=== PATIENT | male | born 1960 | race American Indian/Alaskan Native ===

== ENCOUNTER 2017-07-06 23:46 | Emergency (ER) | payer MEDICAID, OTHER ==
[2017-07-06] MEDS ORDERED: Diphtheria,Pertussis(Acell),Tetanus Vaccine 0.5 ML SDV IM ONE (23:50)
[2017-07-06] MEDS ORDERED: Ondansetron 4 MG/2 ML SDV IV ONE (23:50)
[2017-07-06] MEDS ORDERED: Sodium Chloride 0.9% 10 ML Syringe FLUSH PRN (23:50)
[2017-07-06] MEDS ORDERED: Morphine 4 MG/ML Syringe IVPUSH ONE (23:50)
[2017-07-06] MEDS ORDERED: diphenhydrAMINE 50 MG/ML SDV IVPUSH ONE (23:50)
[2017-07-06] MEDS ORDERED: Piperacillin/Tazobactam 3.375 GM in Sodium Chloride 0.9% 100 ML IV ONE (23:50)
[2017-07-06] MEDS ORDERED: Sodium Chloride 0.9% 1,000 ML IV ONE (23:53)
[2017-07-06] MEDS ORDERED: Iopamidol 612 MG/ML 100 ML Bottle IVPUSH ONE (23:53)
[2017-07-07] MEDS ORDERED: metroNIDAZOLE/Normal Saline 500 MG in Premix Bag 100 BAG IV ONE (00:04)
[2017-07-07 00:23] LABS: CHLORIDE,CL 95 mmol/L (101-111); SODIUM,NA 131 mmol/L (135-145)
[2017-07-07] MEDS ORDERED: Acetaminophen 500 MG Tab PO ONE (00:30)
--- NOTE | 2017-07-07 19:31 | EDM.PDOC ---
ED HPI GENERAL MEDICAL PROBLEM - General Chief Complaint: Bite:Animal, Insect Stated Complaint: AMBULANCE Time Seen by Provider: 07/06/17 23:50 Source of Information: Reports: Patient, EMS History Limitations: Reports: No Limitations - History of Present Illness INITIAL COMMENTS - FREE TEXT/NARRATIVE: patient comes emergency department today with complaints of a painful right forearm. The patient 5 days ago was bitten on the right wrist by some "reservation dogs". he is unsure of the rabies vaccination on him. Since that time he has had increased pain swelling and erythema to his right extremity. He is unsure when his last tetanus shot was. He does complain of fever and chills. He denies any weakness dizziness lightheadedness. He relates at home that he was pulling off some of the black scarring on the wound on his right wrist and popping blisters at home today that were full of pus he reports. He denies chest pain shortness breath or difficulty breathing.he denies any past medical history. He does admit to regular methamphetamine injection. Right Arm Pain Score (Numeric/FACES): 5 - Related Data Allergies Allergy/AdvReac Type Severity Reaction Status Date / Time No Known Allergies Allergy Verified 07/06/17 23:49 Home Meds: Home Meds . [No Known Home Meds] 07/06/17 [History] Past Medical History - Past Health History Medical/Surgical History: Denies Medical/Surgical History - Past Surgical History GI Surgical History: Reports: Appendectomy Social & Family History - Tobacco Use Smoking Status *Q: Current Every Day Smoker Years of Tobacco use: 17 Packs/Tins Daily: 0.8 - Caffeine Use Caffeine Use: Reports: Coffee, Soda - Recreational Drug Use Recreational Drug Use: Yes Drug Use in Last 12 Months: Yes Recreational Drug Type: Reports: Methamphetamine ED ROS GENERAL - Review of Systems Review Of Systems: ROS reveals no pertinent complaints other than HPI. ED EXAM, ANIMAL BITE - Physical Exam Exam: See Below Text/Narrative:: it is quite obvious that his right arm from about the mid humerus all the way down to the end of his fingers is twice as large as his left arm erythematous swollen and extremely foul-smelling. Exam Limited By: No Limitations General Appearance: Alert, WD/WN, No Apparent Distress Eye Exam: Bilateral Eye: EOMI Ears: Normal External Exam, Normal Canal Nose: Normal Inspection, Normal Mucosa Throat/Mouth: Normal Inspection, Normal Lips, Normal Oropharynx Head: Atraumatic, Normocephalic Neck: Normal Inspection Respiratory/Chest: No Respiratory Distress, Lungs Clear, Normal Breath Sounds, No Accessory Muscle Use Cardiovascular: Normal Peripheral Pulses, Regular Rate, Rhythm Peripheral Pulses: 1+: Brachial (R), Radial (R), 2+: Brachial (L), Radial (L) GI/Abdominal: Normal Bowel Sounds, Soft, Non-Tender, No Distention, No Abnormal Bruit (Male) Exam: Deferred Rectal (Males) Exam: Deferred Back Exam: Normal Inspection, Full Range of Motion Extremities: Other (examination of the right upper extremity shows a very impressive erythematous swollen arm that is twice as big as the left arm. On the radial aspect of his right wrist there is approximately baseball size diameter area of black necrotic tissue with white surrounding it circumferentially. There are multiple blisters some fluid-filled and some purulent filled blisters. It has an extremely foul smell to it. He is unable to flex and extend at the wrist. He has minimal movement of his fingers to the right hand. He does have capillary refill at approximately 3 seconds. The erythematous swelling induration and tenderness goes up about group home the mid humerus. I have concerns for either gas gangrene or necrotizing fasciitis.) Neurological: Alert, Oriented Psychiatric: Normal Affect, Normal Mood Skin Exam: Other (his skin is otherwise pale and diaphoretic.) Course - Vital Signs Last Recorded V/S: Last Vital Signs Temp 38.8 C H 07/07/17 00:36 Pulse 93 07/07/17 00:35 Resp 20 07/07/17 00:35 BP 121/66 07/07/17 00:35 Pulse Ox 99 07/07/17 00:35 - Orders/Labs/Meds Orders: Active Orders 24 hr Category Date Time Status Peripheral IV Care [RC] . DIRECTED Care 07/06/17 23:51 Active Vaccines to be Administered [RC] PER UNIT ROUTINE Care 07/06/17 23:51 Active CULTURE BLOOD [BC] Stat Lab 07/06/17 23:51 Received CULTURE WOUND [RM] Stat Lab 07/07/17 00:00 Received Blood Culture x2 Reflex Set [OM.PC] Stat Oth 07/06/17 23:50 Ordered Peripheral IV Insertion Adult [OM.PC] Stat Oth 07/06/17 23:49 Ordered Labs: Laboratory Tests 07/07/17 07/07/17 07/07/17 Range/Units 00:00 00:00 00:00 WBC 17.1 H (5.0-10.0) 10^3/uL RBC 4.31 L (4.6-6.2) 10^6/uL Hgb 13.4 L D (14.0-18.0) g/dL Hct 38.5 L (40.0-54.0) % MCV 89.3 D (80-100) fL MCH 31.1 (27.0-34.0) pg MCHC 34.8 (33.0-35.0) g/dL Plt Count 270 (150-450) 10^3/uL Neut % (Auto) 82.3 H (42.2-75.2) % Lymph % (Auto) 6.6 L (20.5-50.1) % Iron % (Auto) 11.1 H (2-8) % Eos % (Auto) 0.0 L (1.0-3.0) % Baso % (Auto) 0.0 (0.0-1.0) % Add Manual Diff Yes Neutrophils % (Manual) 59 (42-75) % Band Neutrophils % 23 % Lymphocytes % (Manual) 10 L (20-50) % Atypical Lymphs % 0 % Monocytes % (Manual) 8 (2-8) % Eosinophils % (Manual) 0 L (1-3) % Basophils % (Manual) 0 Sodium 131 L D (135-145) mmol/L Potassium 3.6 (3.6-5.0) mmol/L Chloride 95 L D (101-111) mmol/L Carbon Dioxide 25.0 (21.0-31.0) mmol/L Anion Gap 14.6 BUN 34 H (7-18) mg/dL Creatinine 1.0 (0.6-1.3) mg/dL Est Cr Clr Drug Dosing 87.19 mL/min Estimated GFR (MDRD) > 60 BUN/Creatinine Ratio 34.00 Glucose 90 (74-105) mg/dL Lactic Acid 1.9 (0.5-2.2) mmol/L Calcium 8.5 (8.4-10.2) mg/dl Total Bilirubin 0.9 (0.2-1.0) mg/dL AST 65 H (10-42) IU/L ALT 44 (10-60) IU/L Alkaline Phosphatase 45 (42-121) IU/L C-Reactive Protein (0.0-1.3) mg/dL Total Protein 8.4 H (6.7-8.2) g/dl Albumin 3.7 (3.2-5.5) g/dl Globulin 4.7 Albumin/Globulin Ratio 0.79 02//18 Range/Units 00:00 WBC (5.0-10.0) 10^3/uL RBC (4.6-6.2) 10^6/uL Hgb (14.0-18.0) g/dL Hct (40.0-54.0) % MCV (80-100) fL MCH (27.0-34.0) pg MCHC (33.0-35.0) g/dL Plt Count (150-450) 10^3/uL Neut % (Auto) (42.2-75.2) % Lymph % (Auto) (20.5-50.1) % Iron % (Auto) (2-8) % Eos % (Auto) (1.0-3.0) % Baso % (Auto) (0.0-1.0) % Add Manual Diff Neutrophils % (Manual) (42-75) % Band Neutrophils % % Lymphocytes % (Manual) (20-50) % Atypical Lymphs % % Monocytes % (Manual) (2-8) % Eosinophils % (Manual) (1-3) % Basophils % (Manual) Sodium (135-145) mmol/L Potassium (3.6-5.0) mmol/L Chloride (101-111) mmol/L Carbon Dioxide (21.0-31.0) mmol/L Anion Gap BUN (7-18) mg/dL Creatinine (0.6-1.3) mg/dL Est Cr Clr Drug Dosing mL/min Estimated GFR (MDRD) BUN/Creatinine Ratio Glucose (74-105) mg/dL Lactic Acid (0.5-2.2) mmol/L Calcium (8.4-10.2) mg/dl Total Bilirubin (0.2-1.0) mg/dL AST (10-42) IU/L ALT (10-60) IU/L Alkaline Phosphatase (42-121) IU/L C-Reactive Protein 27.1 H (0.0-1.3) mg/dL Total Protein (6.7-8.2) g/dl Albumin (3.2-5.5) g/dl Globulin Albumin/Globulin Ratio Meds: Medications Discontinued Medications Generic Name Dose Route Start Last Admin Trade Name Freq PRN Reason Stop Dose Admin Acetaminophen 1,000 mg 07/07/17 00:30 07/07/17 00:36 Tylenol Extra Strength PO 07/07/17 00:31 1,000 mg ONETIME ONE Administration Diphenhydramine HCl 25 mg 07/06/17 23:50 07/07/17 00:16 Benadryl IVPUSH 07/06/17 23:51 25 mg ONETIME ONE Administration Diphtheria/Tetanus/Acell Pertussis 0.5 ml 07/06/17 23:50 07/07/17 00:12 Adacel IM 07/06/17 23:51 0.5 ml .ONCE ONE Administration Piperacillin Sod/Tazobactam 100 mls @ 200 mls/hr 07/06/17 23:50 07/07/17 00: 15 Sod 3.375 gm/ Sodium Chloride IV 07/07/17 00:19 200 mls/hr ONETIME ONE Administration Vancomycin HCl 1.25 gm/ Sodium 250 mls @ 167 mls/hr 07/06/17 23:50 07/07/17 00:45 Chloride IV 07/07/17 01:19 167 mls/hr ONETIME ONE Administration Sodium Chloride 1,000 mls @ 999 mls/hr 07/06/17 23:53 07/07/17 00:05 Normal Saline IV 07/07/17 00:53 999 mls/hr .BOLUS ONE Administration Metronidazole 500 mg/ Premix 100 mls @ 100 mls/hr 07/07/17 00:04 07/07/17 00: 22 IV 07/07/17 01:03 100 mls/hr ONETIME ONE Administration Iopamidol 100 ml 07/06/17 23:53 Isovue-300 (61%) IVPUSH 07/06/17 23:54 ONETIME ONE Morphine Sulfate 4 mg 07/06/17 23:50 07/07/17 00:02 Morphine IVPUSH 07/06/17 23:51 4 mg ONETIME ONE Administration Ondansetron HCl 4 mg 07/06/17 23:50 07/07/17 00:02 Zofran IV 07/06/17 23:51 4 mg ONETIME ONE Administration Sodium Chloride 10 ml 07/06/17 23:50 07/07/17 00:18 Saline Flush FLUSH 10 ml ASDIRECTED PRN Administration Keep Vein Open - Re-Assessments/Exams Free Text/Narrative Re-Assessment/Exam: 07/06/17 immediately upon arrival have severe concerns for either gas gangrene or necrotizing fasciitis of this right upper extremity. Laboratory evaluation was made to include blood cultures and initiated Zosyn and vancomycin for sepsis. I immediately called and talked to Dr. Gonzalez at [facility] in [place]. History of present illness ER course were relayed to him. He would also like me to add metronidazole for further gram-negative coverage. I did speak with the orthopedic surgeon on as well and he accepted the patient in transfer. We are unable to fly him by helicopter due to the weather. He was emergently transported out of the emergency department for further evaluation and care due to concerns of a severe infection to his right upper extremity. He was updated on his tetanus and given some for pain and nausea. As well as fever. He was never hypotensive or overtly tachycardic while in the emergency department. Departure - Departure Time of Disposition: 23:59 Disposition: DC/Tfer to [facility] 02 Clinical Impression: Cellulitis, upper arm - Discharge Information Referrals: PCP,Unobtain [Primary Care Provider] - Forms: ED Department Discharge - My Orders Last 24 Hours: My Active Orders 07/06/17 23:49 Peripheral IV Insertion Adult [OM.PC] Stat 07/06/17 23:50 Blood Culture x2 Reflex Set [OM.PC] Stat 07/06/17 23:51 Peripheral IV Care [RC] . DIRECTED Vaccines to be Administered [RC] PER UNIT ROUTINE CULTURE BLOOD [BC] Stat 07/07/17 00:00 CULTURE WOUND [RM] Stat - Assessment/Plan Last 24 Hours: My Active Orders 07/06/17 23:49 Peripheral IV Insertion Adult [OM.PC] Stat 07/06/17 23:50 Blood Culture x2 Reflex Set [OM.PC] Stat 07/06/17 23:51 Peripheral IV Care [RC] . DIRECTED Vaccines to be Administered [RC] PER UNIT ROUTINE CULTURE BLOOD [BC] Stat 07/07/17 00:00 CULTURE WOUND [RM] Stat Assessment:: severe cellulitis of the right upper extremity with necrosis concerning for gas gangrene or necrotizing fasciitis. Sepsis without septic shock. Plan: transfer emergently to [facility] emergency department for further care and evaluation antibiotics and fluid administration and round.
== END 2017-07-07 00:54 ==
LOC: EEVIPCON 23:46 → DL.ED 23:46
DX: L03.113 Cellulitis of right upper limb (principal); Z23 Encounter for immunization; F17.210 Nicotine dependence, cigarettes, uncomplicated
CPT/HCPCS: 36415; 80053; 83605; 85025; 86140; 87040; 87070; 90471; 90715; 96365; 96368; 96374; 96375; 99285; A9270; J1200; J2270; J2405; J2543; J3370; J7030; J7050; 87077; 87186

== ENCOUNTER 2017-08-04 12:50 | Emergency (ER) | payer MEDICAID, OTHER ==
[2017-08-04 14:21] LABS: CHLORIDE,CL 103 mmol/L (101-111); SODIUM,NA 139 mmol/L (135-145)
--- NOTE | 2017-08-04 19:02 | EDM.PDOC ---
Scribed by Carol Quijano 08/04/17 1400 for Laurie Echevarria NP ED HPI GENERAL MEDICAL PROBLEM - General Chief Complaint: Bite:Animal, Insect Stated Complaint: AMBULANCE Time Seen by Provider: 08/04/17 13:35 Source of Information: Reports: Patient, RN, RN Notes Reviewed History Limitations: Reports: No Limitations - History of Present Illness INITIAL COMMENTS - FREE TEXT/NARRATIVE: Patient presents to ER per [facility]. He was found walking to the clinic to have dressing changed but didn't realize it was Saturday. He was released from [facility] about 1 week ago after a dog bite 3 weeks ago. Today he has throbbing in his right hand and forearm. He would like the dressing changed and to go home. He had fever,chills and nausea last night. Patient states the rabies status has been addressed and he has been vaccinated. Duration: Getting Worse Location: Reports: Upper Extremity, Right Quality: Reports: Ache Severity: Mild Improves with: Reports: None Worsens with: Reports: None Associated Symptoms: Reports: No Other Symptoms Right Lower Arm Pain Score (Numeric/FACES): 9 - Related Data Allergies Allergy/AdvReac Type Severity Reaction Status Date / Time No Known Allergies Allergy Verified 08/04/17 13:01 Home Meds: Home Meds . [No Known Home Meds] 07/06/17 [History] Past Medical History - Past Health History Medical/Surgical History: Denies Medical/Surgical History HEENT History: Reports: None Cardiovascular History: Reports: None Respiratory History: Reports: None Genitourinary History: Reports: None Musculoskeletal History: Reports: None Neurological History: Reports: None Psychiatric History: Reports: None Endocrine/Metabolic History: Reports: None Hematologic History: Reports: None Immunologic History: Reports: None Oncologic (Cancer) History: Reports: None Dermatologic History: Reports: None - Past Surgical History GI Surgical History: Reports: Appendectomy Social & Family History - Family History Family Medical History: Noncontributory - Tobacco Use Smoking Status *Q: Heavy Tobacco Smoker Years of Tobacco use: 25 Packs/Tins Daily: 0.5 - Caffeine Use Caffeine Use: Reports: Coffee, Soda - Recreational Drug Use Recreational Drug Use: Yes Drug Use in Last 12 Months: Yes Recreational Drug Type: Reports: Marijuana/Hashish Recreational Drug Use Frequency: Socially ED ROS GENERAL - Review of Systems Review Of Systems: ROS reveals no pertinent complaints other than HPI. ED EXAM, ANIMAL BITE - Physical Exam Exam: See Below Exam Limited By: No Limitations General Appearance: Alert, WD/WN, No Apparent Distress Eye Exam: Bilateral Eye: Normal Inspection Ears: Normal External Exam, Normal Canal, Hearing Grossly Normal, Normal TMs Nose: Normal Inspection, Normal Mucosa, No Blood Throat/Mouth: Normal Inspection, Normal Lips, Normal Teeth, Normal Gums, Normal Oropharynx, Normal Voice, No Airway Compromise Head: Atraumatic, Normocephalic Neck: Normal Inspection, Supple, Non-Tender, Full Range of Motion Respiratory/Chest: No Respiratory Distress, Lungs Clear, Normal Breath Sounds, No Accessory Muscle Use, Chest Non-Tender Cardiovascular: Normal Peripheral Pulses, Regular Rate, Rhythm, No Edema, No Gallop, No JVD, No Murmur, No Rub GI/Abdominal: Normal Bowel Sounds, Soft, Non-Tender, No Organomegaly, No Distention, No Abnormal Bruit, No Mass (Male) Exam: Deferred Rectal (Males) Exam: Deferred Back Exam: Normal Inspection, Full Range of Motion, NT Neurological: Alert, Oriented, CN II-XII Intact, Normal Cognition, Normal Gait, Normal Reflexes, No Motor/Sensory Deficits Psychiatric: Normal Affect, Normal Mood Lymphatic: No Adenopathy Course - Vital Signs Last Recorded V/S: Last Vital Signs Temp 99 F 08/04/17 13:04 Pulse 81 08/04/17 13:04 Resp 16 08/04/17 13:04 BP 116/70 08/04/17 13:04 Pulse Ox 97 08/04/17 13:04 - Orders/Labs/Meds Labs: Laboratory Tests 08/04/17 08/04/17 Range/Units 13:52 13:52 WBC 5.6 (5.0-10.0) 10^3/uL RBC 4.36 L (4.6-6.2) 10^6/uL Hgb 13.7 L (14.0-18.0) g/dL Hct 40.8 (40.0-54.0) % MCV 93.6 D (80-100) fL MCH 31.4 (27.0-34.0) pg MCHC 33.6 (33.0-35.0) g/dL Plt Count 317 (150-450) 10^3/uL Neut % (Auto) 63.6 (42.2-75.2) % Lymph % (Auto) 21.6 (20.5-50.1) % [place] % (Auto) 9.7 H (2-8) % Eos % (Auto) 4.7 H (1.0-3.0) % Baso % (Auto) 0.4 (0.0-1.0) % Sodium 139 (135-145) mmol/L Potassium 3.8 (3.6-5.0) mmol/L Chloride 103 (101-111) mmol/L Carbon Dioxide 28.0 (21.0-31.0) mmol/L Anion Gap 11.8 BUN 14 (7-18) mg/dL Creatinine 0.7 (0.6-1.3) mg/dL Est Cr Clr Drug Dosing 128.49 mL/min Estimated GFR (MDRD) > 60 BUN/Creatinine Ratio 20.00 Glucose 105 (74-105) mg/dL Calcium 9.3 (8.4-10.2) mg/dl Total Bilirubin 0.4 (0.2-1.0) mg/dL AST 48 H (10-42) IU/L ALT 47 (10-60) IU/L Alkaline Phosphatase 50 (42-121) IU/L Total Protein 7.8 (6.7-8.2) g/dl Albumin 3.6 (3.2-5.5) g/dl Globulin 4.2 Albumin/Globulin Ratio 0.86 Departure - Departure Time of Disposition: 14:30 Disposition: Home, Self-Care 01 Condition: Fair Clinical Impression: Complication of skin graft - Discharge Information Referrals: PCP,None [Primary Care Provider] - Forms: ED Department Discharge Additional Instructions: Keep area clean and dry Follow up with your primary care facility I have read and agree with the documentation that has been completed regarding this visit. By signing this record, I attest that the documentation was completed in my physical presence and is an accurate record of the encounter.
== END 2017-08-04 14:33 | disposition home or self-care (01) ==
LOC: DL.ED 12:50
DX: T86.829 Unspecified complication of skin graft (allograft) (autograft) (principal); F17.210 Nicotine dependence, cigarettes, uncomplicated
CPT/HCPCS: 36415; 80053; 85025; 99283

== ENCOUNTER 2018-01-03 02:17 | Observation (INO) | payer MEDICAID, OTHER ==
--- NOTE | 2018-01-03 02:31 | EDM.PDOC ---
ED HPI GENERAL MEDICAL PROBLEM - General Chief Complaint: Wound Recheck Stated Complaint: IN BY AMBULANCE-LEG INFECTION Time Seen by Provider: 01/03/18 02:26 Source of Information: Reports: Patient History Limitations: Reports: No Limitations - History of Present Illness INITIAL COMMENTS - FREE TEXT/NARRATIVE: states was just d/c from [facility] few months ago was taking ABX. today right leg got more swollen and red and feels hotter. Right Lower Leg Pain Score (Numeric/FACES): 8 - Related Data Allergies Allergy/AdvReac Type Severity Reaction Status Date / Time No Known Allergies Allergy Verified 01/03/18 02:19 Home Meds: Home Meds . [No Known Home Meds] 07/06/17 [History] Past Medical History - Past Health History Medical/Surgical History: Denies Medical/Surgical History HEENT History: Reports: None Cardiovascular History: Reports: Hypertension Respiratory History: Reports: None Genitourinary History: Reports: None Musculoskeletal History: Reports: None Neurological History: Reports: None Psychiatric History: Reports: None Endocrine/Metabolic History: Reports: None Hematologic History: Reports: None Immunologic History: Reports: None Oncologic (Cancer) History: Reports: None Dermatologic History: Reports: None - Past Surgical History GI Surgical History: Reports: Appendectomy Social & Family History - Family History Family Medical History: Noncontributory - Tobacco Use Smoking Status *Q: Light Tobacco Smoker Years of Tobacco use: 20 Packs/Tins Daily: 0.5 - Caffeine Use Caffeine Use: Reports: Coffee, Soda - Recreational Drug Use Recreational Drug Use: No ED ROS GENERAL - Review of Systems Review Of Systems: ROS reveals no pertinent complaints other than HPI. ED EXAM, SKIN/RASH Exam: See Below Exam Limited By: No Limitations General Appearance: Alert, WD/WN, Mild Distress, Other ([place]) Ears: Hearing Grossly Normal Throat/Mouth: Normal Voice, No Airway Compromise Head: Atraumatic Neck: Non-Tender, Full Range of Motion Respiratory/Chest: No Respiratory Distress Cardiovascular: Regular Rate, Rhythm GI/Abdominal: Soft, Non-Tender Extremities: Other (rigth leg multiple open sores red hot swollen) Neurological: Alert, Oriented, Normal Cognition, No Motor/Sensory Deficits Psychiatric: Flat Affect Skin: Warm, Dry, Normal Color Location, Skin: Lower Extremity, Right Characteristics: Erythematous Associated features: Warmth, Swelling, Inflammation Course - Vital Signs Last Recorded V/S: Last Vital Signs Temp 37.3 C 01/03/18 02:19 Pulse 70 01/03/18 02:19 Resp 18 01/03/18 02:19 BP 108/54 L 01/03/18 02:19 Pulse Ox 97 01/03/18 02:19 - Orders/Labs/Meds Orders: Active Orders 24 hr Category Date Time Status CULTURE BLOOD [BC] Stat Lab 01/03/18 02:35 Received CULTURE WOUND [RM] Stat Lab 01/03/18 02:33 Received Clindamycin Phosphate [Cleocin] 900 mg Med 01/03/18 03:19 Ordered Sodium Chloride 0.9% [Normal Saline] 100 ml IV ONETIME Labs: Laboratory Tests 01/03/18 01/03/18 01/03/18 Range/Units 02:35 02:35 02:35 WBC 8.1 (5.0-10.0) 10^3/uL RBC 3.70 L (4.6-6.2) 10^6/uL Hgb 11.0 L D (14.0-18.0) g/dL Hct 33.5 L (40.0-54.0) % MCV 90.5 D (80-100) fL MCH 29.7 (27.0-34.0) pg MCHC 32.8 L (33.0-35.0) g/dL Plt Count 239 D (150-450) 10^3/uL Neut % (Auto) 61.3 (42.2-75.2) % Lymph % (Auto) 22.5 (20.5-50.1) % [place] % (Auto) 13.6 H (2-8) % Eos % (Auto) 2.4 (1.0-3.0) % Baso % (Auto) 0.2 (0.0-1.0) % Sodium 136 (135-145) mmol/L Potassium 3.3 L (3.6-5.0) mmol/L Chloride 105 (101-111) mmol/L Carbon Dioxide 26.0 (21.0-31.0) mmol/L Anion Gap 8.3 BUN 22 H (7-18) mg/dL Creatinine 0.7 (0.6-1.3) mg/dL Est Cr Clr Drug Dosing 125.05 mL/min Estimated GFR (MDRD) > 60 BUN/Creatinine Ratio 31.42 Glucose 127 H (74-105) mg/dL Lactic Acid 1.5 (0.5-2.2) mmol/L Calcium 8.4 (8.4-10.2) mg/dl Total Bilirubin 0.4 (0.2-1.0) mg/dL AST 38 (10-42) IU/L ALT 31 (10-60) IU/L Alkaline Phosphatase 42 (42-121) IU/L Total Protein 7.5 (6.7-8.2) g/dl Albumin 3.3 (3.2-5.5) g/dl Globulin 4.2 Albumin/Globulin Ratio 0.79 - Re-Assessments/Exams Free Text/Narrative Re-Assessment/Exam: 01/03/18 03:[address] Simental who kindly admitted pt to observation. Departure - Departure Time of Disposition: 03:20 Disposition: Refer to Observation Condition: Fair Clinical Impression: Cellulitis Qualifiers: Site of cellulitis: extremity Site of cellulitis of extremity: lower extremity Laterality: right Qualified Code(s): L03.115 - Cellulitis of right lower limb - Discharge Information Forms: ED Department Discharge - My Orders Last 24 Hours: My Active Orders 01/03/18 02:33 CULTURE WOUND [RM] Stat 01/03/18 02:35 CULTURE BLOOD [BC] Stat 01/03/18 03:19 Clindamycin Phosphate [Cleocin] 900 mg Sodium Chloride 0.9% [Normal Saline] 100 ml IV ONETIME - Assessment/Plan Last 24 Hours: My Active Orders 01/03/18 02:33 CULTURE WOUND [RM] Stat 01/03/18 02:35 CULTURE BLOOD [BC] Stat 01/03/18 03:19 Clindamycin Phosphate [Cleocin] 900 mg Sodium Chloride 0.9% [Normal Saline] 100 ml IV ONETIME
[2018-01-03 03:03] LABS: ANION GAP 8.3; CHLORIDE,CL 105 mmol/L (101-111); SODIUM,NA 136 mmol/L (135-145)
[2018-01-03] MEDS ORDERED: Clindamycin Phosphate 900 MG in Sodium Chloride 0.9% 100 ML IV ONE (03:19)
[2018-01-03] MEDS ORDERED: Acetaminophen 325 MG Tab PO PRN ×2 (03:51→06:04)
[2018-01-03] MEDS ORDERED: Acetaminophen/oxyCODONE 325-5 MG Tab PO PRN (03:51)
[2018-01-03] MEDS ORDERED: Docusate Sodium 100 MG Cap PO PRN (06:04)
[2018-01-03] MEDS ORDERED: Magnesium Hydroxide 400 MG/5 ML Susp 30 ML Cup PO PRN (06:04)
[2018-01-03] MEDS ORDERED: Bisacodyl 10 MG Supp RECTAL PRN (06:04)
[2018-01-03] MEDS ORDERED: Aluminum Hydroxide/Magnesium Hydroxide/Simethicone Susp 30 ML Cup PO PRN (06:04)
[2018-01-03] MEDS ORDERED: Calcium Carbonate 500 MG Tab.Chew PO PRN (06:04)
--- NOTE | 2018-01-03 06:12 | PCM.HP ---
H&P History of Present Illness - General Date of Service: 01/03/18 Admit Problem/Dx: Admission Diagnosis/Problem Admission Diagnosis/Problem Cellulitis Source of Information: Patient History Limitations: Reports: No Limitations - History of Present Illness Initial Comments - Free Text/Narative: Patient is 57 y/o M with PMH of substance abuse (Tobacco, methamphetamine) h/o narcotizing fascitis, HCV. Patient presented with sudden severe pain to the right leg with blister that started fews hours prior to presentation. He said he was well to last night he started having severe throbbing/burning sensation to the right leg. He decided to take a shower to see if he will get relieve. After leaving the shower he noted the anterior aspect of the rt. lower leg has blistered out. Pain was so severe and he decided come to [facility] ER. Pain was 10/10 in severity. He denies trauma, fever, chills. Of note he reports chronic skin lesion to the right lowr leg and has been having recurrent flares of blisters and pain. Unclear if this is atopic dermatitis or vascular dermatitis. Onset of Symptoms: Reports: Sudden, Gradual Duration of Symptoms: Reports: Week(s): Location: Reports: Lower Extremity, Right Quality: Reports: Burning Improves with: Reports: None Worsens with: Reports: None Associated Symptoms: Reports: No Other Symptoms Right Lower Leg Pain Score (Numeric/FACES): 8 - Related Data Allergies/Adverse Reactions: Allergies Allergy/AdvReac Type Severity Reaction Status Date / Time No Known Allergies Allergy Verified 01/03/18 03:52 Home Medications: Home Meds Acetaminophen [Tylenol] 325 mg PO Q4H PRN 01/03/18 [History] Past Medical History - Past Health History Medical/Surgical History: Denies Medical/Surgical History HEENT History: Reports: None Cardiovascular History: Reports: Hypertension Respiratory History: Reports: None, Other (See Below) Other Respiratory History: pt states he saw a MD that dx him with lung disease and cancer. pt can't remember who or where. Genitourinary History: Reports: None Musculoskeletal History: Reports: None Neurological History: Reports: None Psychiatric History: Reports: None Endocrine/Metabolic History: Reports: None Hematologic History: Reports: None Immunologic History: Reports: None Oncologic (Cancer) History: Reports: Other (See Below) Other Oncologic History: lung Dermatologic History: Reports: Other (See Below) Other Dermatologic History: right arm skin scarring related to a scrap with a dog November 2017 - Past Surgical History GI Surgical History: Reports: Appendectomy Social & Family History - Family History Family Medical History: Noncontributory - Tobacco Use Smoking Status *Q: Current Every Day Smoker Years of Tobacco use: 40 Packs/Tins Daily: 0.5 Used Tobacco, but Quit: No Second Hand Smoke Exposure: No - Caffeine Use Caffeine Use: Reports: Coffee - Recreational Drug Use Recreational Drug Use: Yes Drug Use in Last 12 Months: Yes Recreational Drug Type: Reports: Marijuana/Hashish Recreational Drug Use Frequency: Socially H&P Review of Systems - Review of Systems: Review Of Systems: See Below General: Reports: No Symptoms HEENT: Reports: No Symptoms Pulmonary: Reports: No Symptoms Cardiovascular: Reports: No Symptoms Gastrointestinal: Reports: No Symptoms Genitourinary: Reports: No Symptoms Musculoskeletal: Reports: Other (blister like lesion to the RLE with pain) Skin: Reports: No Symptoms Psychiatric: Reports: No Symptoms Neurological: Reports: No Symptoms Hematologic/Lymphatic: Reports: No Symptoms Immunologic: Reports: No Symptoms Exam - Exam Exam: See Below - Vital Signs Vital Signs: Last Vital Signs Temp 98.4 F 01/03/18 03:50 Pulse 61 01/03/18 03:50 Resp 18 01/03/18 03:50 BP 104/58 L 01/03/18 03:50 Pulse Ox 100 01/03/18 03:50 Weight: 159 lb 3.2 oz - Exam Quality Assessment: DVT Prophylaxis General: Alert, Oriented, 4 HEENT: PERRLA, Hearing Intact, Mucosa Moist & [place], Nares Patent, Normal Nasal Septum, Posterior Pharynx Clear, Conjunctiva Clear, EOMI, EACs Clear, TMs Clear Neck: Supple, Trachea Midline, 2 Lungs: Clear to Auscultation, Normal Respiratory Effort Cardiovascular: Regular Rate, Regular Rhythm GI/Abdominal Exam: Normal Bowel Sounds, Soft, Non-Tender, No Organomegaly, No Distention, No Abnormal Bruit, No Mass, Pelvis Stable (Male) Exam: No Hernia, Normal Inspection, Normal Prostate, Circumcised, Deferred Rectal (Males) Exam: Deferred Back Exam: Normal Inspection, Full Range of Motion, NT Extremities: Other (blister like lesion to RLE) Skin: Rash Neurological: Cranial Nerves Intact, Reflexes Equal Bilateral Neuro Extensive - Mental Status: Alert, Oriented x3, Normal Mood/Affect, Normal Cognition Neuro Extensive - Motor, Sensory, Reflexes: CN II-XII Intact, Normal Gait, Normal Reflexes Psychiatric: Alert, Normal Affect, Normal Mood - Patient Data Lab Results Last 24 hrs: Laboratory Results - last 24 hr 01/03/18 01/03/18 01/03/18 Range/Units 02:35 02:35 02:35 WBC 8.1 (5.0-10.0) 10^3/uL RBC 3.70 L (4.6-6.2) 10^6/uL Hgb 11.0 L D (14.0-18.0) g/dL Hct 33.5 L (40.0-54.0) % MCV 90.5 D (80-100) fL MCH 29.7 (27.0-34.0) pg MCHC 32.8 L (33.0-35.0) g/dL Plt Count 239 D (150-450) 10^3/uL Neut % (Auto) 61.3 (42.2-75.2) % Lymph % (Auto) 22.5 (20.5-50.1) % [place] % (Auto) 13.6 H (2-8) % Eos % (Auto) 2.4 (1.0-3.0) % Baso % (Auto) 0.2 (0.0-1.0) % Sodium 136 (135-145) mmol/L Potassium 3.3 L (3.6-5.0) mmol/L Chloride 105 (101-111) mmol/L Carbon Dioxide 26.0 (21.0-31.0) mmol/L Anion Gap 8.3 BUN 22 H (7-18) mg/dL Creatinine 0.7 (0.6-1.3) mg/dL Est Cr Clr Drug Dosing 125.05 mL/min Estimated GFR (MDRD) > 60 BUN/Creatinine Ratio 31.42 Glucose 127 H (74-105) mg/dL Lactic Acid 1.5 (0.5-2.2) mmol/L Calcium 8.4 (8.4-10.2) mg/dl Total Bilirubin 0.4 (0.2-1.0) mg/dL AST 38 (10-42) IU/L ALT 31 (10-60) IU/L Alkaline Phosphatase 42 (42-121) IU/L Total Protein 7.5 (6.7-8.2) g/dl Albumin 3.3 (3.2-5.5) g/dl Globulin 4.2 Albumin/Globulin Ratio 0.79 Result Diagrams: 01/03/18 02:35 01/03/18 07:25 - Problem List (1) Atopic contact dermatitis SNOMED Code(s): 736972394 ICD Code: L23.9 - ALLERGIC CONTACT DERMATITIS, UNSPECIFIED CAUSE Status: Acute Current Visit: Yes Problem List Initiated/Reviewed/Updated: Yes Orders Last 24hrs: Active Orders 24 hr Category Date Time Status Patient Status [ADT] Routine ADT 01/03/18 06:04 Ordered Ambulate [RC] ASDIRECTED Care 01/03/18 06:04 Ordered Antiembolic Devices [RC] .Routine Care 01/03/18 06:08 Ordered VTE/DVT Education [RC] PER UNIT ROUTINE Care 01/03/18 06:08 Ordered Vital Signs [RC] Q4H Care 01/03/18 06:04 Ordered Regular Diet [DIET] Diet 01/03/18 Breakfast Ordered BASIC METABOLIC PANEL,BMP [CHEM] Routine Lab 01/03/18 06:04 Ordered CREATINE KINASE,CK [CHEM] Routine Lab 01/03/18 06:10 Ordered CULTURE BLOOD [BC] Stat Lab 01/03/18 02:35 Received CULTURE WOUND [RM] Stat Lab 01/03/18 02:33 Received Acetaminophen [Tylenol] Med 01/03/18 06:04 Ordered 650 mg PO Q4H PRN Acetaminophen [Tylenol] Med 01/03/18 03:51 Active 650 mg PO Q6H PRN Acetaminophen/oxyCODONE [Percocet 325-5 MG] Med 01/03/18 03:51 Active 1 tab PO Q6H PRN Alum Hydrox/Mag Hydrox/Simeth [Mag-Al Plus] Med 01/03/18 06:04 Ordered 30 ml PO Q4H PRN Bisacodyl [Dulcolax] Med 01/03/18 06:04 Ordered 10 mg RECTAL DAILY PRN Calcium Carbonate [Tums] Med 01/03/18 06:04 Ordered 500 mg PO Q4H PRN Clindamycin Phosphate [Cleocin] 600 mg Med 01/03/18 06:15 Ordered Sodium Chloride 0.9% [Normal Saline] 100 ml IV Q8H Docusate Sodium [Colace] Med 01/03/18 06:04 Ordered 100 mg PO DAILY PRN Heparin Sodium Med 01/03/18 06:15 Ordered 5,000 units SUBCUT Q12H Magnesium Hydroxide [Milk of Magnesia] Med 01/03/18 06:04 Ordered 30 ml PO BID PRN DVT/VTE Prophylaxis Reflex [OM.PC] Routine Oth 01/03/18 06:04 Ordered Resuscitation Status Routine Resus Stat 01/03/18 06:04 Ordered Venous Duplex Leg Rt [CV] Routine Ther 01/03/18 06:10 Ordered Medication Orders Acetaminophen (Tylenol) 650 mg PO Q6H PRN PRN Reason: Pain Oxycodone/Acetaminophen (Percocet 325-5 Mg) 1 tab PO Q6H PRN PRN Reason: Pain Last Admin: 01/03/18 04:03 Dose: 1 tab Assessment/Plan Comment:: Patient presenting with sudden onset of pain, redness, and blister like lesion to the right leg -Etiology unclear -most likely atpoic dermatitis vs vascular dermatitis vs cellulitis -will admit to observation status -blood cx -Start IV clindamycin -pain control with percocet -venous US -Dermatology consult upon discharge H/o substance abuse -advised to quit H/o HCV -GI follow up as outpatient Regular diet Full code
[2018-01-03] MEDS ORDERED: Clindamycin Phosphate 600 MG in Sodium Chloride 0.9% 100 ML IV SCH (06:15)
[2018-01-03 07:56] LABS: CHLORIDE,CL 107 mmol/L (101-111); SODIUM,NA 139 mmol/L (135-145)
[2018-01-03] MEDS: Heparin Sodium 5,000 Units/ML Vial SUBCUT SCH ×2 (08:31→17:35)
[2018-01-03] MEDS: Clindamycin Phosphate 600 MG in Sodium Chloride 0.9% 100 ML IV SCH ×2 (11:34→20:14)
[2018-01-03] MEDS: Nicotine 14 MG/24 Hr Patch TRDERM SCH (11:38)
--- NOTE | 2018-01-03 12:06 | US ---
CLINICAL HISTORY: 57-year-old male with redness and swelling right lower extremity (open sores this p atient with varicose veins and calf pain who is at bed rest). Rule out DVT. INTERPRETATION: Enlarged lymph nodes right groin consistent with inflammation. No sign of intraluminal echogenic thrombus and normal compressibility deep veins of the right groin, thigh, knee and calf proximally. Satisfactory augmentation and venous waveform demonstrated respectiv sylvester in the posterior tibial vein proximal right calf, popliteal vein behind the right knee, and proxi milana in the femoral veins of the right thigh and groin. No popliteal or Gil's cyst identified behind the right knee. CONCLUSION: No current evidence deep vein thrombosis right lower extremity. Lymphadenopathy right [place] in.
[2018-01-03] MEDS ORDERED: Sodium Chloride 0.9% 10 ML Syringe FLUSH PRN (13:32)
[2018-01-04] MEDS: Clindamycin Phosphate 600 MG in Sodium Chloride 0.9% 100 ML IV SCH ×2 (04:08→13:58)
[2018-01-04] MEDS: Heparin Sodium 5,000 Units/ML Vial SUBCUT SCH (05:26)
[2018-01-04] MEDS: Nicotine 14 MG/24 Hr Patch TRDERM SCH (09:36)
--- NOTE | 2018-01-04 10:50 | PCM.DCSUM1 ---
Discharge Summary - Hospital Course HPI Initial Comments: Patient is 57 y/o M with PMH of substance abuse (Tobacco, methamphetamine) h/o narcotizing fascitis, HCV, chronic right leg lesion. Patient presented with sudden severe pain to the right leg with blisters that started fews hours prior to presentation. He said he was well till last night when he started having severe throbbing/burning sensation to the right leg. He decided to take a shower to see if he will get relieve. After leaving the shower he noted the anterior aspect of the rt. lower leg has blistered out. Pain was so severe and he decided come to [facility] ER. Pain was 10/10 in severity. He denies trauma, fever, chills. Of note he reports chronic skin lesion to the right lowr leg and has been having recurrent flares of blisters and pain. Unclear if this is atopic dermatitis or vascular dermatitis. He was admitted for acute flare of atopic dermatitis vs vascular dermatitis vs cellulites. He received IV abx and triamcinolone topical treatment with improvement in skin lesion. His stay has remained uncomplicated. He was seen in the today and dong well. He is being discharge home. He will follow with his PCP and product sales representative. Diagnosis: Stroke: No - Discharge Data Discharge Date: 01/04/18 Discharge Disposition: Home, Self-Care 01 Condition: Good - Discharge Diagnosis/Problem(s) (1) Atopic contact dermatitis SNOMED Code(s): 705302575 ICD Code: L23.9 - ALLERGIC CONTACT DERMATITIS, UNSPECIFIED CAUSE Status: Acute Current Visit: Yes - Patient Instructions Diet: Heart Healthy Diet, No Alcoholic Beverages Activity: As Tolerated Notify Provider of: Fever, Increased Pain, Swelling and Redness, Nausea and/or Vomiting - Discharge Plan *PRESCRIPTION DRUG MONITORING PROGRAM REVIEWED*: No *COPY OF PRESCRIPTION DRUG MONITORING REPORT IN PATIENT SIVA: No Prescriptions/Med Rec: Clindamycin HCl [Cleocin] 300 mg PO Q8H 5 Days #30 cap Triamcinolone Acetonide [Triamcinolone Acetonide 0.1% Oint] 0 tubing TOP BID #1 tube Home Medications: Home Meds Acetaminophen [Tylenol] 325 mg PO Q4H PRN 01/03/18 [History] Clindamycin HCl [Cleocin] 300 mg PO Q8H 5 Days #30 cap 01/04/18 [Rx] Triamcinolone Acetonide [Triamcinolone Acetonide 0.1% Oint] 0 tubing TOP BID #1 tube 01/04/18 [Rx] Forms: ED Department Discharge Referrals: PCP,Unobtain [Ordering Only Provider] - - Discharge Summary/Plan Comment DC Time >30 min.: Yes - General Info Admission Dx/Problem (Free Text: Admission Diagnosis/Problem Admission Diagnosis/Problem Cellulitis vs dermatitis Functional Status: Reports: Pain Controlled - Review of Systems General: Reports: No Symptoms HEENT: Reports: No Symptoms Pulmonary: Reports: No Symptoms Cardiovascular: Reports: No Symptoms Gastrointestinal: Reports: No Symptoms Genitourinary: Reports: No Symptoms Musculoskeletal: Reports: No Symptoms Skin: Reports: No Symptoms Neurological: Reports: No Symptoms Psychiatric: Reports: No Symptoms - Patient Data Vitals - Most Recent: Last Vital Signs Temp 97.4 F 01/04/18 02:00 Pulse 49 L 01/04/18 02:00 Resp 18 01/04/18 02:00 BP 100/61 01/04/18 02:00 Pulse Ox 99 01/04/18 02:00 Weight - Most Recent: 159 lb 3.2 oz I&O - Last 24 hours: Intake & Output 01/03/18 01/04/18 01/04/18 22:59 06:59 14:59 Intake Total 640 201 Balance 640 201 TEJA Results - Last 24 hrs: Microbiology 01/03/18 02:33 Wound Culture - Preliminary Leg, Right 01/03/18 02:35 Aerobic Blood Culture - Preliminary Blood NO GROWTH AFTER 1 DAY Anaerobic Blood Culture - Preliminary NO GROWTH AFTER 1 DAY Med Orders - Current: Current Medications Acetaminophen (Tylenol) 650 mg PO Q6H PRN PRN Reason: Pain Al Hydroxide/Mg Hydroxide (Mag-Al Plus) 30 ml PO Q4H PRN PRN Reason: Dyspepsia Bisacodyl (Dulcolax) 10 mg RECTAL DAILY PRN PRN Reason: Constipation Calcium Carbonate/Glycine (Tums) 500 mg PO Q4H PRN PRN Reason: Dyspepsia Clindamycin HCl (Cleocin) 300 mg PO Q8H [facility] Docusate Sodium (Colace) 100 mg PO DAILY PRN PRN Reason: Constipation Heparin Sodium (Porcine) (Heparin Sodium) 5,000 units SUBCUT Q12H [facility]NA Last Admin: 01/04/18 05:26 Dose: 5,000 units Clindamycin Phosphate 600 mg/ (Sodium Chloride) 104 mls @ 200 mls/hr IV Q8H [facility] Last Admin: 01/04/18 04:08 Dose: 200 mls/hr Magnesium Hydroxide (Milk Of Magnesia) 30 ml PO BID PRN PRN Reason: Constipation Nicotine (Habitrol) 14 mg TRDERM DAILY [facility] Last Admin: 01/04/18 09:36 Dose: 14 mg Oxycodone/Acetaminophen (Percocet 325-5 Mg) 1 tab PO Q6H PRN PRN Reason: Pain Last Admin: 01/03/18 04:03 Dose: 1 tab Sodium Chloride (Saline Flush) 10 ml FLUSH ASDIRECTED PRN PRN Reason: Keep Vein Open Triamcinolone Acetonide (Triamcinolone Acetonide 0.1% Oint) 0 gm TOP BID [facility] Discontinued Medications Acetaminophen (Tylenol) 650 mg PO Q4H PRN PRN Reason: Pain (mild 1-3 )/fever Clindamycin Phosphate 900 mg/ (Sodium Chloride) 106 mls @ 200 mls/hr IV ONETIME ONE Stop: 01/03/18 03:50 Last Admin: 01/03/18 03:41 Dose: 200 mls/hr Clindamycin Phosphate 600 mg/ (Sodium Chloride) 104 mls @ 200 mls/hr IV Q8H [facility] Last Admin: 01/03/18 08:09 Dose: Not Given - Exam General: Reports: Alert, Oriented HEENT: Reports: Pupils Equal, Pupils Reactive, EOMI, Mucous Membr. Moist/[place] Neck: Reports: Supple Lungs: Reports: Clear to Auscultation, Normal Respiratory Effort Cardiovascular: Reports: Regular Rate, Regular Rhythm GI/Abdominal Exam: Normal Bowel Sounds, Soft, Non-Tender, No Organomegaly, No Distention, No Abnormal Bruit, No Mass, Pelvis Stable (Male) Exam: No Hernia, Normal Inspection, Normal Prostate, Circumcised Rectal (Males) Exam: Normal Exam, Normal Rectal Tone, Prostate Normal Back Exam: Reports: Normal Inspection, Full Range of Motion Extremities: Normal Inspection, Normal Range of Motion, Non-Tender, No Pedal Edema, Normal Capillary Refill, Other (roght lower leg lesion. blister dried out ) Skin: Reports: Warm, Dry, Intact Wound/Incisions: Reports: Healing Well Neurological: Reports: No New Focal Deficit Psy/Mental Status: Reports: Alert, Normal Affect, Normal Mood
[2018-01-04] MEDS ORDERED: Clindamycin HCl 150 MG Cap PO SCH (12:00)
[2018-01-04] MEDS ORDERED: Triamcinolone Acetonide 0.1% Oint 15 GM Tube TOP SCH (21:00)
== END 2018-01-04 13:40 | disposition home or self-care (01) ==
LOC: DL.ED 02:17 → UNDOADMIN 03:27 → DL.MS 03:27 → INTOOBSV 06:04
PROVIDERS: ADMIT Student in an Organized Health Care Education/Training Program; ATTEND Student in an Organized Health Care Education/Training Program
DX: L23.9 Allergic contact dermatitis, unspecified cause (principal); I10 Essential (primary) hypertension; F17.200 Nicotine dependence, unspecified, uncomplicated; R59.0 Localized enlarged lymph nodes
CPT/HCPCS: 36415; 80048; 80053; 82550; 83605; 85025; 87040; 87070; 87077; 87186; 93971; 99284; A9270; J1644; J3490; J7050; 96365; 96366; 96372; G0378

== ENCOUNTER 2019-09-07 14:01 | Emergency (ER) | payer MEDICAID, OTHER ==
--- NOTE | 2019-09-07 14:44 | EDM.PDOC ---
ED HPI GENERAL MEDICAL PROBLEM - General Chief Complaint: Abdominal Pain Stated Complaint: AMBULANCE Time Seen by Provider: 09/07/19 14:35 Source of Information: Reports: Patient History Limitations: Reports: No Limitations - History of Present Illness INITIAL COMMENTS - FREE TEXT/NARRATIVE: This 58 yo male patient reports to the ED by [facility] due to diffuse abdominal pain. The patient reports his pain started last night and has been getting worse. The patient reports he attempted to drink ETOH to control his pain. The patient reports he noticed a large area in the right upper abdomen that has gotten very hard and very tender to touch. The patient reports he has not noticed this in the past. The patient admits to drinking ETOH last night and has used meth intermittently for years (last use was 2 days ago). Onset Date: 09/06/19 Duration: Constant, Getting Worse Location: Reports: Abdomen (RUQ) Quality: Reports: Sharp, Stabbing Severity: Severe Improves with: Reports: None Worsens with: Reports: None Context: Reports: Other Associated Symptoms: Reports: No Other Symptoms Right Upper Abdomen Pain Score (Numeric/FACES): 10 - Related Data Allergies Allergy/AdvReac Type Severity Reaction Status Date / Time No Known Allergies Allergy Verified 09/07/19 14:09 Home Meds: Home Meds . [No Known Home Meds] 09/07/19 [History] Past Medical History - Past Health History Medical/Surgical History: Denies Medical/Surgical History HEENT History: Reports: None Cardiovascular History: Reports: Hypertension Respiratory History: Reports: None, Other (See Below) Other Respiratory History: pt states he saw a MD that dx him with lung disease and cancer. pt can't remember who or where. Genitourinary History: Reports: None Musculoskeletal History: Reports: None Neurological History: Reports: None Psychiatric History: Reports: None Endocrine/Metabolic History: Reports: None Hematologic History: Reports: None Immunologic History: Reports: None Oncologic (Cancer) History: Reports: Other (See Below) Other Oncologic History: lung Dermatologic History: Reports: Other (See Below) Other Dermatologic History: right arm skin scarring related to a scrap with a dog November 2017 - Past Surgical History GI Surgical History: Reports: Appendectomy Social & Family History - Family History Family Medical History: Noncontributory - Tobacco Use Smoking Status *Q: Current Every Day Smoker Years of Tobacco use: 20 Packs/Tins Daily: 0.5 - Caffeine Use Caffeine Use: Reports: Coffee - Alcohol Use Days Per Week of Alcohol Use: 4 Number of Drinks Per Day: 5 Total Drinks Per Week: 20 - Recreational Drug Use Recreational Drug Use: Yes Drug Use in Last 12 Months: Yes Recreational Drug Type: Reports: Marijuana/Hashish Other Recreational Drug Type: obvious track salas, fresh, healing and scarred ED ROS GENERAL - Review of Systems Review Of Systems: Comprehensive ROS is negative, except as noted in HPI. ED EXAM, GI/ABD - Physical Exam Exam: See Below Exam Limited By: No Limitations General Appearance: Alert, WD/WN, Moderate Distress Eyes: Bilateral: Normal Appearance, EOMI Ears: Normal External Exam, Normal Canal, Hearing Grossly Normal, Normal TMs Nose: Normal Inspection, Normal Mucosa, No Blood Throat/Mouth: Other (missing numerous teeth) Head: Atraumatic, Normocephalic Neck: Normal Inspection, Supple, Non-Tender, Full Range of Motion Respiratory/Chest: No Respiratory Distress, Lungs Clear, Normal Breath Sounds, No Accessory Muscle Use, Chest Non-Tender Cardiovascular: Normal Peripheral Pulses, Regular Rate, Rhythm, No Edema, No Gallop, No JVD, No Murmur, No Rub (Male) Exam: Hernia (RUQ), Other (diffuse abdominal pain) Rectal (Males) Exam: Deferred Back Exam: Normal Inspection, Full Range of Motion, NT Extremities: Normal Inspection, Normal Range of Motion, Non-Tender, Normal Capillary Refill, No Pedal Edema Neurological: Alert, Oriented, CN II-XII Intact, Normal Cognition Psychiatric: Normal Affect, Normal Mood Skin Exam: Other (unkept) Lymphatic: No Adenopathy Course - Vital Signs Last Recorded V/S: Last Vital Signs Temp 35.9 C L 09/07/19 14:02 Pulse 72 09/07/19 14:02 Resp 18 09/07/19 14:02 BP 156/86 H 09/07/19 14:02 Pulse Ox 97 09/07/19 14:02 - Orders/Labs/Meds Orders: Active Orders 24 hr Category Date Time Status Abdomen Pelvis w Cont [CT] Urgent Exams 09/07/19 15:44 Taken HYDROmorphone [Dilaudid] Med 09/07/19 17:09 Once 0.5 mg IVPUSH ONETIME ONE Labs: Laboratory Tests 09/07/19 09/07/19 09/07/19 Range/Units 14:12 14:12 14:12 WBC 9.5 (5.0-10.0) 10^3/uL RBC 5.06 (4.6-6.2) 10^6/uL Hgb 15.3 D (14.0-18.0) g/dL Hct 45.3 (40.0-54.0) % MCV 89.5 (80-100) fL MCH 30.2 (27.0-34.0) pg MCHC 33.8 (33.0-35.0) g/dL Plt Count 249 (150-450) 10^3/uL Neut % (Auto) 84.0 H (42.2-75.2) % Lymph % (Auto) 13.0 L (20.5-50.1) % [place] % (Auto) 2.6 (2-8) % Eos % (Auto) 0.3 L (1.0-3.0) % Baso % (Auto) 0.1 (0.0-1.0) % Sodium (136-145) mmol/L Potassium (3.5-5.1) mmol/L Chloride (98-107) mmol/L Carbon Dioxide (21-32) mmol/L Anion Gap (7-13) mEq/L BUN (7-18) mg/dL Creatinine (0.70-1.30) mg/dL Est Cr Clr Drug Dosing mL/min Estimated GFR (MDRD) BUN/Creatinine Ratio (No establ ref range) Glucose (74-99) mg/dL Lactic Acid 2.6 H* (0.4-2.0) mmol/L Calcium (8.5-10.1) mg/dL Total Bilirubin (0.2-1.0) mg/dL AST (15-37) U/L ALT (16-63) U/L Alkaline Phosphatase (46-116) U/L Total Protein (6.4-8.2) g/dL Albumin (3.4-5.0) g/dL Globulin Albumin/Globulin Ratio Amylase 74 (25-115) U/L Lipase 57 L (73-393) U/L Urine Color (YELLOW) Urine Appearance (CLEAR) Urine pH (5.0-9.0) Ur Specific [place]roid (1.005-1.030) Urine Protein (NEGATIVE) Urine Glucose (UA) (NEGATIVE) Urine Ketones (NEGATIVE) Urine Occult Blood (NEGATIVE) Urine Nitrite (NEGATIVE) Urine Bilirubin (NEGATIVE) Urine Urobilinogen (0.2-1.0) mg/dL Ur Leukocyte Esterase (NEGATIVE) Urine Opiates Screen (NEGATIVE) Ur Oxycodone Screen (NEGATIVE) Urine Methadone Screen (NEGATIVE) Ur Barbiturates Screen (NEGATIVE) U Tricyclic Antidepress (NEGATIVE) Ur Phencyclidine Scrn (NEGATIVE) Ur Amphetamine Screen (NEGATIVE) U Methamphetamines Scrn (NEGATIVE) Urine MDMA Screen (NEGATIVE) U Benzodiazepines Scrn (NEGATIVE) Urine Cocaine Screen (NEGATIVE) U Marijuana (THC) Screen (NEGATIVE) Ethyl Alcohol 54 (0) mg/dL 09/07/19 09/07/19 09/07/19 Range/Units 14:12 16:27 16:27 WBC (5.0-10.0) 10^3/uL RBC (4.6-6.2) 10^6/uL Hgb (14.0-18.0) g/dL Hct (40.0-54.0) % MCV (80-100) fL MCH (27.0-34.0) pg MCHC (33.0-35.0) g/dL Plt Count (150-450) 10^3/uL Neut % (Auto) (42.2-75.2) % Lymph % (Auto) (20.5-50.1) % [place] % (Auto) (2-8) % Eos % (Auto) (1.0-3.0) % Baso % (Auto) (0.0-1.0) % Sodium 140 (136-145) mmol/L Potassium 4.4 (3.5-5.1) mmol/L Chloride 103 (98-107) mmol/L Carbon Dioxide 25 (21-32) mmol/L Anion Gap 16.4 H (7-13) mEq/L BUN 14 (7-18) mg/dL Creatinine 0.68 L (0.70-1.30) mg/dL Est Cr Clr Drug Dosing 121.30 mL/min Estimated GFR (MDRD) > 60 BUN/Creatinine Ratio 20.6 (No establ ref range) Glucose 102 H (74-99) mg/dL Lactic Acid (0.4-2.0) mmol/L Calcium 8.8 (8.5-10.1) mg/dL Total Bilirubin 0.2 (0.2-1.0) mg/dL AST 63 H (15-37) U/L ALT 75 H (16-63) U/L Alkaline Phosphatase 66 (46-116) U/L Total Protein 8.4 H (6.4-8.2) g/dL Albumin 3.6 (3.4-5.0) g/dL Globulin 4.8 Albumin/Globulin Ratio 0.8 Amylase (25-115) U/L Lipase (73-393) U/L Urine Color Yellow (YELLOW) Urine Appearance Clear (CLEAR) Urine pH 5.5 (5.0-9.0) Ur Specific [place] >= 1.030 (1.005-1.030) Urine Protein Negative (NEGATIVE) Urine Glucose (UA) Negative (NEGATIVE) Urine Ketones Negative (NEGATIVE) Urine Occult Blood Negative (NEGATIVE) Urine Nitrite Negative (NEGATIVE) Urine Bilirubin Negative (NEGATIVE) Urine Urobilinogen 0.2 (0.2-1.0) mg/dL Ur Leukocyte Esterase Negative (NEGATIVE) Urine Opiates Screen Negative (NEGATIVE) Ur Oxycodone Screen Negative (NEGATIVE) Urine Methadone Screen Negative (NEGATIVE) Ur Barbiturates Screen Negative (NEGATIVE) U Tricyclic Antidepress Negative (NEGATIVE) Ur Phencyclidine Scrn Negative (NEGATIVE) Ur Amphetamine Screen Negative (NEGATIVE) U Methamphetamines Scrn Positive H (NEGATIVE) Urine MDMA Screen Negative (NEGATIVE) U Benzodiazepines Scrn Negative (NEGATIVE) Urine Cocaine Screen Negative (NEGATIVE) U Marijuana (THC) Screen Positive H (NEGATIVE) Ethyl Alcohol (0) mg/dL Meds: Medications Discontinued Medications Generic Name Dose Route Start Last Admin Trade Name Freq PRN Reason Stop Dose Admin Hydromorphone HCl 0.5 mg 09/07/19 16:54 09/07/19 17:00 Dilaudid IVPUSH 09/07/19 16:55 0.5 mg ONETIME ONE Administration Sodium Chloride 1,000 mls @ 999 mls/hr 09/07/19 14:55 09/07/19 15:09 Normal Saline IV 09/07/19 15:55 999 mls/hr .BOLUS ONE Administration Iopamidol 100 ml 09/07/19 15:44 09/07/19 16:05 Isovue-300 (61%) IVPUSH 09/07/19 15:45 75 ml ONETIME ONE Administration - Radiology Interpretation Free Text/Narrative:: PROCEDURE INFORMATION: Exam: CT Abdomen And Pelvis With Contrast Exam date and time: 09/07/2019 4:02 PM Age: 58 years old Clinical indication: Abdominal pain; Prior surgery; Surgery date: 6+ months; Surgery type: Appendectomy. ; Patient HX: Hard lump ruq. ? Incarcerated hernia. TECHNIQUE: Imaging protocol: Computed tomography of the abdomen and pelvis with intravenous contrast. Radiation optimization: All CT scans at this facility use at least one of these dose optimization techniques: automated exposure control; mA and/or kV adjustment per patient size (includes targeted exams where dose is matched to clinical indication); or iterative reconstruction. Contrast material: ISOVUE 300; Contrast volume: 75 ml; Contrast route: LF; COMPARISON: CT Abdomen Pelvis wo Cont 10/04/2013 7:47 AM FINDINGS: Lungs: A 6 mm pleural based ground-glass nodule is again demonstrated within the right middle lobe, which is stable in comparison to the 2013 examination. No follow-up imaging is necessary. (Vianca H et al. Radiology. 2017Jul 05;284,1). Liver: Probable hepatic cysts are again demonstrated, measuring up to 1.1 cm in the medial segment of the left hepatic lobe. Additional subcentimeter foci of low attenuation in the liver are too small to definitively characterize, but are compatible with hepatic cysts. Gallbladder and bile ducts: Normal. No calcified stones. No ductal dilation. Pancreas: Punctate pancreatic parenchymal calcifications are noted, which may represent changes of chronic pancreatitis. No CT evidence of acute pancreatitis. Spleen: Normal. No splenomegaly. Adrenals: Normal. No mass. Kidneys and ureters: Normal. No hydronephrosis. Stomach and bowel: See "Soft tissues" finding. Appendix: The appendix is not identified, compatible with the patient's reported history of prior appendectomy. Intraperitoneal space: Tiny amount of pelvic free fluid is present. No organized fluid collections. 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 Lymph nodes: Unremarkable. No enlarged lymph nodes. Bladder: Unremarkable as visualized. Reproductive: Unremarkable as visualized. Bones/joints: Degenerative changes are noted throughout the visualized spine and bilateral hip joints. Soft tissues: A moderate sized ventral hernia is noted within the right upper anterior abdominal wall, containing a loop of small bowel. Small bowel loops proximal to the hernia are mildly dilated and fluidfilled with adjacent mesenteric edema, and bowel loops distal to the hernia are decompressed, compatible with associated bowel obstruction. There is stranding of the herniated fat. An additional small fat filled supraumbilical ventral hernia is noted. IMPRESSION: 1. Incarcerated small bowel containing right upper quadrant ventral hernia, with some degree of associated small bowel obstruction. Right upper quadrant mesenteric edema and stranding of the herniated fat. 2. Nonacute findings as above. Thank you for allowing us to participate in the care of your patient. Dictated and Authenticated by: Honorio Silva MD Departure - Departure Time of Disposition: 17:11 Disposition: DC/Tfer to Acute Hospital 02 Condition: Poor Clinical Impression: Hernia of abdominal wall - Discharge Information *PRESCRIPTION DRUG MONITORING PROGRAM REVIEWED*: Not Applicable *COPY OF PRESCRIPTION DRUG MONITORING REPORT IN PATIENT SIVA: Not Applicable Forms: Interfacility Transfer EMTALA Care Plan Goals: Discussed the patient's history, examination, lab and CT results with Dr. García ( [facility]). Dr. García agreed to see the patient in the ED in [place] for continued evaluation and management. The patient will be transported by [facility]. Sepsis Event Note - Evaluation Sepsis Screening Result: No Definite Risk - Focused Exam Vital Signs: Vital Signs Temp Pulse Resp BP Pulse Ox 09/07/19 14:02 35.9 C L 72 18 156/86 H 97 Date Exam was Performed: 09/07/19 Time Exam was Performed: 17:10 - My Orders Last 24 Hours: My Active Orders 09/07/19 15:44 Abdomen Pelvis w Cont [CT] Urgent 09/07/19 17:09 HYDROmorphone [Dilaudid] 0.5 mg IVPUSH ONETIME ONE - Assessment/Plan Last 24 Hours: My Active Orders 09/07/19 15:44 Abdomen Pelvis w Cont [CT] Urgent 09/07/19 17:09 HYDROmorphone [Dilaudid] 0.5 mg IVPUSH ONETIME ONE
[2019-09-07 14:45] LABS: ANION GAP 16.4 mEq/L (7-13); CHLORIDE,CL 103 mmol/L (98-107); SODIUM,NA 140 mmol/L (136-145)
[2019-09-07] MEDS ORDERED: Sodium Chloride 0.9% 1,000 ML IV ONE (14:55)
[2019-09-07] MEDS ORDERED: Iopamidol 612 MG/ML 100 ML Bottle IVPUSH ONE (15:44)
[2019-09-07] MEDS ORDERED: HYDROmorphone 0.5 MG/0.5 ML Syringe IVPUSH ONE ×2 (16:54→17:09)
== END 2019-09-07 18:19 ==
LOC: DL.ED 14:01
DX: K43.9 Ventral hernia without obstruction or gangrene (principal); I10 Essential (primary) hypertension; F17.210 Nicotine dependence, cigarettes, uncomplicated
CPT/HCPCS: 36415; 74177; 80053; 80305; 80307; 81003; 82150; 83605; 83690; 85025; 96374; 99284; 99285; J1170; J7030; Q9967

== ENCOUNTER 2020-05-26 03:47 | Emergency (ER) | payer OTHER ==
[2020-05-26] MEDS ORDERED: Sodium Chloride 0.9% 1,000 ML IV ONE (03:52)
[2020-05-26] MEDS ORDERED: LORazepam 2 MG/ML SDV IVPUSH ONE (03:52)
--- NOTE | 2020-05-26 04:02 | EDM.PDOCBH ---
ED HPI GENERAL MEDICAL PROBLEM - General Chief Complaint: Drug or Alcohol Abuse Stated Complaint: AMBULANCE Time Seen by Provider: 05/26/20 03:50 Source of Information: Reports: Patient, EMS History Limitations: Reports: Other - History of Present Illness INITIAL COMMENTS - FREE TEXT/NARRATIVE: This 59 yo male patient was brought to the ED by [facility] due to shortness of breath. The patient admits to using Meth at 2200 last night. Just after using the meth, the patient reports he started to have shortness of breath. The patient reports his "buddies" gave him the meth. The patient reports he is having heart problems. Onset Date: 05/25/20 Onset Time: 22:00 Duration: Constant, Getting Worse Location: Reports: Chest Quality: Reports: Other Severity: Moderate Improves with: Reports: None Worsens with: Reports: None Left Anterior Chest Pain Score (Numeric/FACES): 5 - Related Data Allergies Allergy/AdvReac Type Severity Reaction Status Date / Time No Known Allergies Allergy Verified 05/26/20 03:56 Home Meds: Home Meds . [No Known Home Meds] 09/07/19 [History] Past Medical History - Past Health History Medical/Surgical History: Denies Medical/Surgical History HEENT History: Reports: None Cardiovascular History: Reports: Hypertension Respiratory History: Reports: None, Other (See Below) Other Respiratory History: pt states he saw a MD that dx him with lung disease and cancer. pt can't remember who or where. Genitourinary History: Reports: None Musculoskeletal History: Reports: None Neurological History: Reports: None Psychiatric History: Reports: None Endocrine/Metabolic History: Reports: None Hematologic History: Reports: None Immunologic History: Reports: None Oncologic (Cancer) History: Reports: Other (See Below) Other Oncologic History: lung Dermatologic History: Reports: Other (See Below) Other Dermatologic History: right arm skin scarring related to a scrap with a dog November 2017 - Past Surgical History GI Surgical History: Reports: Appendectomy Social & Family History - Family History Family Medical History: No Pertinent Family History - Tobacco Use Tobacco Use Status *Q: Current Status Unknown Second Hand Smoke Exposure: Yes - Caffeine Use Caffeine Use: Reports: Soda - Alcohol Use Date of Last Drink: 05/26/20 - Recreational Drug Use Recreational Drug Use: Yes Drug Use in Last 12 Months: Yes Recreational Drug Type: Reports: Methamphetamine Recreational Drug Use Frequency: Patient Refuses To Answer ED ROS GENERAL - Review of Systems Review Of Systems: Comprehensive ROS is negative, except as noted in HPI. ED EXAM, BEHAVIORAL HEALTH - Physical Exam Exam: See Below Exam Limited By: Altered Mental Status (due to recent meth use/abuse) General Appearance: Alert, Anxious, Moderate Distress Eye Exam: Bilateral Eye: EOMI, Normal Inspection, PERRL Ears: Normal External Exam, Normal Canal, Hearing Grossly Normal, Normal TMs Nose: Normal Inspection, Normal Mucosa, No Blood Throat/Mouth: Other (generalized poor dentition due to methamphetamine use) Head: Atraumatic, Normocephalic Neck: Normal Inspection, Supple, Non-Tender, Full Range of Motion Respiratory/Chest: No Respiratory Distress, Lungs Clear, Normal Breath Sounds, No Accessory Muscle Use, Chest Non-Tender Cardiovascular: No Edema, No Gallop, No JVD, No Murmur, No Rub, Tachycardia GI/Abdominal: Normal Bowel Sounds, Soft, Non-Tender, No Organomegaly, No Distention, No Abnormal Bruit, No Mass (Male) Exam: Deferred Rectal (Males) Exam: Deferred Back Exam: Normal Inspection, Full Range of Motion, NT Extremities: Leg Pain (right lower leg swelling) Neurological: Alert, Normal Mood/Affect, CN II-XII Intact, Normal Cognition, Normal Gait, Normal Reflexes, No Motor/Sensory Deficits, Oriented x 3 Psychiatric: Alert, Agitated Skin Exam: Warm, Dry, Intact, Normal color, Wound/incision (right lower extremity) COURSE, BEHAVIORAL HEALTH COMP - Course Vital Signs: Last Vital Signs Temp 36.3 C 05/26/20 03:48 Pulse 105 H 05/26/20 03:48 Resp 19 05/26/20 03:48 BP 126/57 L 05/26/20 03:48 Pulse Ox 99 05/26/20 03:48 Orders, Labs, Meds: Active Orders 24 hr Category Date Time Status EKG Documentation Completion [RC] STAT Care 05/26/20 03:51 Active CULTURE BLOOD [BC] Stat Lab 05/26/20 03:51 Ordered DRUG SCREEN URINE BIORAD [URCHEM] Stat Lab 05/26/20 03:51 Ordered LACTATE SEPSIS W/ REFLEX [CHEM] Stat Lab 05/26/20 03:51 Ordered UA RFX TEJA AND CULT IF INDIC [URIN] Urgent Lab 05/26/20 03:51 Ordered Sodium Chloride 0.9% [Normal Saline] 1,000 ml Med 05/26/20 03:52 Active IV .BOLUS Sulfamethoxazole/Trimethoprim [Septra DS] Med 05/26/20 04:47 Once 1 tab PO ONETIME ONE cephALEXin [Keflex] Med 05/26/20 04:47 Once 500 mg PO ONETIME ONE Medication Orders Sodium Chloride (Normal Saline) 1,000 mls @ 500 mls/hr IV .BOLUS ONE Stop: 05/26/20 05:51 Last Admin: 05/26/20 04:09 Dose: 500 mls/hr Documented by: TANO Laboratory Tests 05/26/20 05/26/20 05/26/20 Range/Units 04:08 04:08 04:08 WBC 14.0 H (5.0-10.0) 10^3/uL RBC 4.45 L (4.6-6.2) 10^6/uL Hgb 13.6 L D (14.0-18.0) g/dL Hct 39.9 L (40.0-54.0) % MCV 89.7 (80-100) fL MCH 30.6 (27.0-34.0) pg MCHC 34.1 (33.0-35.0) g/dL Plt Count 220 (150-450) 10^3/uL Neut % (Auto) 84.9 H (42.2-75.2) % Lymph % (Auto) 8.1 L (20.5-50.1) % [place] % (Auto) 6.8 (2-8) % Eos % (Auto) 0.1 L (1.0-3.0) % Baso % (Auto) 0.1 (0.0-1.0) % Sodium 142 (136-145) mmol/L Potassium 4.5 (3.5-5.1) mmol/L Chloride 105 (98-107) mmol/L Carbon Dioxide 23 (21-32) mmol/L Anion Gap 18.5 H (7-13) mEq/L BUN 23 H (7-18) mg/dL Creatinine 1.49 H (0.70-1.30) mg/dL Est Cr Clr Drug Dosing TNP Estimated GFR (MDRD) 49 BUN/Creatinine Ratio 15.4 (No establ ref range) Glucose 108 H (74-99) mg/dL Calcium 8.9 (8.5-10.1) mg/dL Magnesium 1.6 L (1.8-2.4) mg/dL Total Bilirubin 0.2 (0.2-1.0) mg/dL AST 71 H (15-37) U/L ALT 63 (16-63) U/L Alkaline Phosphatase 58 (46-116) U/L Troponin I < 0.017 (0.000-0.056) ng/mL Total Protein 8.1 (6.4-8.2) g/dL Albumin 3.3 L (3.4-5.0) g/dL Globulin 4.8 Albumin/Globulin Ratio 0.69 Ethyl Alcohol < 3 (0) mg/dL Medications Generic Name Dose Route Start Last Admin Trade Name Freq PRN Reason Stop Dose Admin Sodium Chloride 1,000 mls @ 500 mls/hr 05/26/20 03:52 05/26/20 04:09 Normal Saline IV 05/26/20 05:51 500 mls/hr .BOLUS ONE Administration Discontinued Medications Generic Name Dose Route Start Last Admin Trade Name Freq PRN Reason Stop Dose Admin Lorazepam 1 mg 05/26/20 03:52 05/26/20 04:05 Ativan IVPUSH 05/26/20 03:53 1 mg ONETIME ONE Administration Re-Assessment/Re-Exam: The patient reports his lower leg now "roberts". Departure - Departure Time of Disposition: 04:52 Disposition: Home, Self-Care 01 Condition: Fair Clinical Impression: Cellulitis of right lower extremity, Methamphetamine abuse - Discharge Information *PRESCRIPTION DRUG MONITORING PROGRAM REVIEWED*: Not Applicable *COPY OF PRESCRIPTION DRUG MONITORING REPORT IN PATIENT SIVA: Not Applicable Instructions: Methamphetamines Use Disorder, Cellulitis, Adult, [id number] Forms: ED Department Discharge Care Plan Goals: The patient was advised of the examination and lab results during the visit. The patient was advised to stop using methamphetamines. The patient was discharged with a script for Keflex (500 mg) #42 to take 1 by mouth 3 times per day for 1 days and Bactrim DS to take 1 by mouth 2 times per day for 14 days. The patient was encouraged to follow-up with his primary care facility. If the patient has any additional symptoms or concerns, the patient should either return to the emergency department or visit his primary care facility. Sepsis Event Note (ED) - Evaluation Sepsis Screening Result: No Definite Risk - Focused Exam Vital Signs: Vital Signs Temp Pulse Resp BP Pulse Ox 05/26/20 03:48 36.3 C 105 H 19 126/57 L 99 - My Orders Last 24 Hours: My Active Orders 05/26/20 03:51 EKG Documentation Completion [RC] STAT CULTURE BLOOD [BC] Stat DRUG SCREEN URINE BIORAD [URCHEM] Stat LACTATE SEPSIS W/ REFLEX [CHEM] Stat UA RFX TEJA AND CULT IF INDIC [URIN] Urgent 05/26/20 03:52 Sodium Chloride 0.9% [Normal Saline] 1,000 ml IV .BOLUS 05/26/20 04:47 Sulfamethoxazole/Trimethoprim [Septra DS] 1 tab PO ONETIME ONE cephALEXin [Keflex] 500 mg PO ONETIME ONE - Assessment/Plan Last 24 Hours: My Active Orders 05/26/20 03:51 EKG Documentation Completion [RC] STAT CULTURE BLOOD [BC] Stat DRUG SCREEN URINE BIORAD [URCHEM] Stat LACTATE SEPSIS W/ REFLEX [CHEM] Stat UA RFX TEJA AND CULT IF INDIC [URIN] Urgent 05/26/20 03:52 Sodium Chloride 0.9% [Normal Saline] 1,000 ml IV .BOLUS 05/26/20 04:47 Sulfamethoxazole/Trimethoprim [Septra DS] 1 tab PO ONETIME ONE cephALEXin [Keflex] 500 mg PO ONETIME ONE
[2020-05-26 04:44] LABS: ANION GAP 18.5 mEq/L (7-13); CHLORIDE,CL 105 mmol/L (98-107); SODIUM,NA 142 mmol/L (136-145)
[2020-05-26] MEDS ORDERED: Cephalexin 500 MG Cap PO ONE (04:47)
[2020-05-26] MEDS ORDERED: Sulfamethoxazole/Trimethoprim 800-160 MG Tab PO ONE (04:47)
== END 2020-05-26 04:56 | disposition home or self-care (01) ==
LOC: DL.ED 03:47
DX: L03.115 Cellulitis of right lower limb (principal); F15.10 Other stimulant abuse, uncomplicated; I10 Essential (primary) hypertension; Z77.22 Contact with and (suspected) exposure to environmental tobacco smoke (acute) (chronic)
CPT/HCPCS: 36415; 80053; 80307; 83605; 83735; 84484; 85025; 87040; 93005; 96374; 99285; A9270; J2060; J7030

== ENCOUNTER 2020-05-29 20:02 | Emergency (ER) | payer OTHER ==
[2020-05-29] MEDS ORDERED: Acetaminophen/HYDROcodone 325-10 MG Tab PO ONE (20:03)
[2020-05-29] MEDS ORDERED: Clindamycin Phosphate 900 MG in Sodium Chloride 0.9% 100 ML IV ONE (20:15)
[2020-05-29] MEDS ORDERED: Sodium Chloride 0.9% 1,000 ML IV SCH (20:15)
--- NOTE | 2020-05-29 20:29 | EDM.PDOC ---
ED HPI GENERAL MEDICAL PROBLEM - General Chief Complaint: Lower Extremity Injury/Pain Stated Complaint: UNKNOWN Time Seen by Provider: 05/29/20 20:27 Source of Information: Reports: Patient, Old Records History Limitations: Reports: No Limitations - History of Present Illness INITIAL COMMENTS - FREE TEXT/NARRATIVE: was here few days ago and Tx with keflex for cellulitis but not better and leg feels it's burning. Treatments [employer]: Reports: NSAIDS - Related Data Allergies Allergy/AdvReac Type Severity Reaction Status Date / Time No Known Allergies Allergy Verified 05/29/20 20:32 Home Meds: Home Meds . [No Known Home Meds] 09/07/19 [History] Past Medical History - Past Health History Medical/Surgical History: Denies Medical/Surgical History HEENT History: Reports: None Cardiovascular History: Reports: Hypertension Respiratory History: Reports: None, Other (See Below) Other Respiratory History: pt states he saw a MD that dx him with lung disease and cancer. pt can't remember who or where. Genitourinary History: Reports: None Musculoskeletal History: Reports: None Neurological History: Reports: None Psychiatric History: Reports: Addiction Endocrine/Metabolic History: Reports: None Hematologic History: Reports: None Immunologic History: Reports: None Oncologic (Cancer) History: Reports: Lung Other Oncologic History: lung Dermatologic History: Reports: Cellulitis, Other (See Below) Other Dermatologic History: right arm skin scarring related to a scrap with a dog November 2017 - Past Surgical History GI Surgical History: Reports: Appendectomy Dermatological Surgical History: Reports: Skin Graft Social & Family History - Family History Family Medical History: No Pertinent Family History - Tobacco Use Tobacco Use Status *Q: Current Every Day Tobacco User Years of Tobacco use: 48 Packs/Tins Daily: 1 Second Hand Smoke Exposure: Yes - Caffeine Use Caffeine Use: Reports: Coffee, Soda - Recreational Drug Use Recreational Drug Use: Yes Drug Use in Last 12 Months: Yes Recreational Drug Type: Reports: Amphetamines (Speed), Methamphetamine Recreational Drug Use Frequency: Binges Review of Systems - Review of Systems Review Of Systems: Comprehensive ROS is negative, except as noted in HPI. ED EXAM, GENERAL - Physical Exam Exam: See Below Exam Limited By: No Limitations General Appearance: Alert, WD/WN, Mild Distress Ears: Hearing Grossly Normal Throat/Mouth: Normal Voice, No Airway Compromise Head: Atraumatic Neck: Non-Tender, Full Range of Motion Respiratory/Chest: No Respiratory Distress Cardiovascular: Regular Rate, Rhythm GI/Abdominal: Soft, Non-Tender (Male) Exam: Deferred Rectal (Males) Exam: Deferred Extremities: Other (right leg cellulits, swollen tender R/P, NV wnl) Neurological: Alert, Oriented, Normal Cognition, No Motor/Sensory Deficits Psychiatric: Tearful Skin Exam: Warm, Dry, Erythema Lymphatic: No Adenopathy Course - Vital Signs Last Recorded V/S: Last Vital Signs Temp 38.4 C H 05/29/20 20:13 Pulse 78 05/29/20 20:13 Resp 16 05/29/20 20:13 BP 156/75 H 05/29/20 20:13 Pulse Ox 100 05/29/20 20:13 - Orders/Labs/Meds Orders: Active Orders 24 hr Category Date Time Status CULTURE BLOOD [BC] Stat Lab 05/29/20 20:30 Received Sodium Chloride 0.9% [Normal Saline] 1,000 ml Med 05/29/20 20:15 Active IV ASDIRECTED Medication Orders Sodium Chloride (Normal Saline) 1,000 mls @ 500 mls/hr IV ASDIRECTED DENA Last Admin: 05/29/20 20:39 Dose: 500 mls/hr Documented by: ALLIE Labs: Laboratory Tests 05/29/20 05/29/20 05/29/20 Range/Units 20:30 20:30 20:30 WBC 10.1 H (5.0-10.0) 10^3/uL RBC 4.55 L (4.6-6.2) 10^6/uL Hgb 13.9 L (14.0-18.0) g/dL Hct 41.4 (40.0-54.0) % MCV 91.0 (80-100) fL MCH 30.5 (27.0-34.0) pg MCHC 33.6 (33.0-35.0) g/dL Plt Count 287 (150-450) 10^3/uL Neut % (Auto) 77.6 H (42.2-75.2) % Lymph % (Auto) 10.7 L (20.5-50.1) % Mobile % (Auto) 8.3 H (2-8) % Eos % (Auto) 3.2 H (1.0-3.0) % Baso % (Auto) 0.2 (0.0-1.0) % Sodium 138 (136-145) mmol/L Potassium 3.8 (3.5-5.1) mmol/L Chloride 99 (98-107) mmol/L Carbon Dioxide 30 (21-32) mmol/L Anion Gap 12.8 (7-13) mEq/L BUN 12 (7-18) mg/dL Creatinine 0.80 (0.70-1.30) mg/dL Est Cr Clr Drug Dosing 106.85 mL/min Estimated GFR (MDRD) > 60 BUN/Creatinine Ratio 15.0 (No establ ref range) Glucose 98 (74-99) mg/dL Lactic Acid 1.3 (0.4-2.0) mmol/L Calcium 8.9 (8.5-10.1) mg/dL Total Bilirubin 0.4 (0.2-1.0) mg/dL AST 47 H (15-37) U/L ALT 49 (16-63) U/L Alkaline Phosphatase 63 (46-116) U/L Total Protein 8.5 H (6.4-8.2) g/dL Albumin 3.3 L (3.4-5.0) g/dL Globulin 5.2 Albumin/Globulin Ratio 0.63 Meds: Medications Generic Name Dose Route Start Last Admin Trade Name Freq PRN Reason Stop Dose Admin Sodium Chloride 1,000 mls @ 500 mls/hr 05/29/20 20:15 05/29/20 20:39 Normal Saline IV 500 mls/hr ASDIRECTED DENA Administration Discontinued Medications Generic Name Dose Route Start Last Admin Trade Name Freq PRN Reason Stop Dose Admin Clindamycin Phosphate 900 mg/ 106 mls @ 200 mls/hr 05/29/20 20:15 05/29/20 20:40 Sodium Chloride IV 05/29/20 20:46 200 mls/hr ONETIME ONE Administration - Re-Assessments/Exams Free Text/Narrative Re-Assessment/Exam: 05/29/20 21:52 results discussed with pt Departure - Departure Time of Disposition: 21:52 Disposition: Home, Self-Care 01 Condition: Fair Clinical Impression: Cellulitis of right lower extremity - Discharge Information Instructions: Cellulitis, Adult, [id number] Forms: ED Department Discharge Additional Instructions: 1) keep wound clean and dry 2) elevate leg as much as possible 3) follow up at clinic rx given; clindamycin 300mg qid x 40 Sepsis Event Note (ED) - Evaluation Sepsis Screening Result: No Definite Risk - Focused Exam Vital Signs: Vital Signs Temp Pulse Resp BP Pulse Ox 05/29/20 20:13 38.4 C H 78 16 156/75 H 100 - My Orders Last 24 Hours: My Active Orders 05/29/20 20:15 Sodium Chloride 0.9% [Normal Saline] 1,000 ml IV ASDIRECTED 05/29/20 20:30 CULTURE BLOOD [BC] Stat - Assessment/Plan Last 24 Hours: My Active Orders 05/29/20 20:15 Sodium Chloride 0.9% [Normal Saline] 1,000 ml IV ASDIRECTED 05/29/20 20:30 CULTURE BLOOD [BC] Stat
[2020-05-29 20:57] LABS: ANION GAP 12.8 mEq/L (7-13); CHLORIDE,CL 99 mmol/L (98-107); SODIUM,NA 138 mmol/L (136-145)
--- NOTE | 2020-05-29 21:41 | CT ---
PROCEDURE INFORMATION: Exam: CT Right Lower Extremity Without Contrast; Lower Leg Exam date and time: 05/29/2020 9:14 PM Age: 59 years old Clinical indication: Other: Right leg pain; Patient HX: Left is for comparison; Additional info: R/O osteo TECHNIQUE: Imaging protocol: CT of the Right lower extremity without contrast was performed. Exam focused on the lower leg. Radiation optimization: All CT scans at this facility use at least one of these dose optimization techniques: automated exposure control; mA and/or kV adjustment per patient size (includes targeted exams where dose is matched to clinical indication); or iterative reconstruction. COMPARISON: No relevant prior studies available. FINDINGS: Bones/joints: There is no evidence of knee joint effusion. There is no evidence of acute fracture. There is no subluxation or dislocation. No bone destruction. No periosteal reaction. Soft tissues: There is skin thickening and subcutaneous edema in the right lower leg extending from roughly the knee joint to the foot. This becomes particularly severe at the ankle and on the dorsum. No localized fluid collection is seen. No focal intramuscular abnormality is seen. IMPRESSION: 1. Soft tissue abnormality as described. Question cellulitis. Question venous stasis. Question lymphedema. 2. No underlying bony abnormality seen. 3. If occult osteomyelitis is clinically suspect consider
[2020-05-29] MEDS ORDERED: Acetaminophen/HYDROcodone 325-10 MG Tab ONE (21:52)
== END 2020-05-29 22:03 | disposition home or self-care (01) ==
LOC: DL.ED 20:02
DX: L03.115 Cellulitis of right lower limb (principal); I10 Essential (primary) hypertension; Z72.0 Tobacco use
CPT/HCPCS: 36415; 73700; 80053; 83605; 85025; 87040; 96365; 99284; A9270; J3490; J7030; J7050; 99283

== ENCOUNTER 2022-08-22 09:44 | Emergency (ER) | payer OTHER ==
[2022-08-22] MEDS ORDERED: Ketorolac 30 MG/ML SDV IM ONE (10:13)
[2022-08-22] MEDS ORDERED: Acetaminophen 500 MG Tab PO ONE (11:17)
[2022-08-22] MEDS ORDERED: Cyclobenzaprine 10 MG Tab PO ONE (11:17)
[2022-08-22] MEDS ORDERED: Bisacodyl 5 MG Tab PO ONE (11:18)
== END 2022-08-22 11:44 | disposition home or self-care (01) ==
LOC: DL.ED 09:44
DX: M51.36 Other intervertebral disc degeneration, lumbar region (principal); K59.09 Other constipation; I10 Essential (primary) hypertension
CPT/HCPCS: 72100; 96372; 99283; 99284; A9270-GY; J1885

== ENCOUNTER 2022-10-19 11:07 | Emergency (ER) | payer MEDICAID ==
[2022-10-19] MEDS ORDERED: Glucose Gel 15 GM in 37.5 GM Tube PO ONE (11:08)
[2022-10-19] MEDS ORDERED: 50% Dextrose in Water 50 ML Syringe IVPUSH ONE (11:08)
[2022-10-19] MEDS ORDERED: Sodium Chloride 0.9% 10 ML Syringe FLUSH PRN (11:10)
[2022-10-19] MEDS ORDERED: Sodium Chloride 0.9% 1,000 ML IV ONE (11:10)
[2022-10-19] MEDS ORDERED: MVI, Adult with Vitamin K 10 ML, Thiamine 100 MG, Folic Acid 1 MG in Lactated Ringers 1... IV ONE ×4 (11:10)
[2022-10-19 11:41] LABS: BASOPHILS PERCENT AUTO 0.3 % (0.0-1.0); EOSINOPHILS PERCENT AUTO 0.3 % (1.0-3.0); HEMATOCRIT 42.3 % (40.0-54.0); HEMOGLOBIN 14.3 g/dL (14.0-18.0); LYMPHOCYTES PERCENT AUTO 15.6 % (20.5-50.1); MEAN CORPUSCULAR HEMOGLOBIN 31.6 pg (27.0-34.0); MEAN CORPUSCULAR HGB CONC 33.8 g/dL (33.0-35.0); MEAN CORPUSCULAR VOLUME 93.4 fL (80-100); MONOCYTES PERCENT AUTO 5.5 % (2-8); NEUTROPHILS PERCENT AUTO 78.3 % (42.2-75.2); PLATELET COUNT,PLT 220 10^3/uL (150-450); RED BLOOD CELL COUNT 4.53 10^6/uL (4.6-6.2); WHITE BLOOD CELL COUNT,WBC 10.9 10^3/uL (5.0-10.0)
[2022-10-19 11:43] LABS: O2 DELIVERY DEVICE ROOM AIR
[2022-10-19 11:46] LABS: BASE EXCESS VENOUS -4.4 mmol/l ((-2)-(+3)); BICARBONATE,VENOUS 20 mmol/l (19-25); O2 SATURATION VENOUS 35.7 % (60-80); PCO2 VENOUS 35 mmHg (41-51); PH,VENOUS 7.36 (7.31-7.41); PO2 VENOUS 29 mmHg (35-42)
[2022-10-19 12:02] LABS: B-TYPE NATRIURETIC PEPTIDE,BNP 28 pg/ml (0-100)
[2022-10-19 12:04] LABS: ALANINE AMINOTRANSFERASE,ALT 73 U/L (16-63); ALBUMIN 3.5 g/dL (3.4-5.0); ALKALINE PHOSPHATASE 73 U/L (46-116); AMYLASE 58 U/L (25-115); ANION GAP 24.1 mEq/L (7-13); ASPARTATE AMNIOTRANSFERASE,AST 86 U/L (15-37); BILIRUBIN TOTAL 0.4 mg/dL (0.2-1.0); BLOOD UREA NITROGEN,BUN 21 mg/dL (7-18); BUN/CREATININE RATIO 11.1 (No establ ref range); CALCIUM 8.3 mg/dL (8.5-10.1); CARBON DIOXIDE,CO2 19 mmol/L (21-32); CHLORIDE,CL 102 mmol/L (98-107); CREATININE 1.89 mg/dL (0.70-1.30); ETHANOL BLOOD MEDICAL 174 mg/dL (0); GLUCOSE RANDOM 267 mg/dL (70-99); LIPASE 68 U/L (73-393); MAGNESIUM 1.3 mg/dL (1.8-2.4); POTASSIUM,K 4.1 mmol/L (3.5-5.1); PROTEIN TOTAL,TP 7.1 g/dL (6.4-8.2); SODIUM,NA 141 mmol/L (136-145)
[2022-10-19 12:05] LABS: KETONES,BLOOD NEGATIVE
[2022-10-19 12:07] LABS: ESTIMATED GFR 40 mL/min (>=60)
[2022-10-19 12:08] LABS: LACTIC ACID 7.6 mmol/L (0.4-2.0)
[2022-10-19 12:09] LABS: PROTHROMBIN TIME 10.2 SEC (9.0-12.0); PTT,PARTIAL THROMBOPLSTIN TIME 26.1 SEC (22.0-34.0)
[2022-10-19] MEDS ORDERED: Dextrose 5%-0.9% NaCl 1,000 ML IV SCH (14:00)
== END 2022-10-19 16:06 | disposition home or self-care (01) ==
LOC: DL.ED 11:07
DX: F10.10 Alcohol abuse, uncomplicated (principal); E86.0 Dehydration; E87.20 Acidosis, unspecified; N17.9 Acute kidney failure, unspecified; K70.9 Alcoholic liver disease, unspecified; I10 Essential (primary) hypertension; E16.2 Hypoglycemia, unspecified; Z87.891 Personal history of nicotine dependence
CPT/HCPCS: 36415; 71045; 80053; 80307; 82009; 82150; 82803; 82947; 83605; 83690; 83735; 83880; 84145; 84484; 85025; 85610; 85730; 87040; 93005; 93010; 96361; 96365; 96375; 99284; 99285-25; A9270-GY; J3411; J3490; J7030; J7042; J7120

== ENCOUNTER 2022-12-13 13:12 | Emergency (ER) | payer MEDICAID ==
[2022-12-13] MEDS ORDERED: Sodium Chloride 0.9% 10 ML Syringe FLUSH PRN (13:16)
[2022-12-13] MEDS ORDERED: Sodium Chloride 0.9% 1,000 ML IV ONE (13:17)
[2022-12-13] MEDS ORDERED: Thiamine 100 MG in Sodium Chloride 0.9% 100 ML IV ONE (13:17)
[2022-12-13] MEDS ORDERED: Pantoprazole 40 MG Vial IVPUSH ONE (13:18)
[2022-12-13 13:35] LABS: BASOPHILS PERCENT AUTO 0.8 % (0.0-1.0); EOSINOPHILS PERCENT AUTO 1.3 % (1.0-3.0); HEMATOCRIT 38.8 % (40.0-54.0); HEMOGLOBIN 12.7 g/dL (14.0-18.0); LYMPHOCYTES PERCENT AUTO 16.7 % (20.5-50.1); MEAN CORPUSCULAR HGB CONC 32.7 g/dL (33.0-35.0); MEAN CORPUSCULAR VOLUME 97.7 fL (80-100); MONOCYTES PERCENT AUTO 7.3 % (2-8); NEUTROPHILS PERCENT AUTO 73.9 % (42.2-75.2); PLATELET COUNT,PLT 216 10^3/uL (150-450); RED BLOOD CELL COUNT 3.97 10^6/uL (4.6-6.2)
[2022-12-13 13:51] LABS: INR 0.9 (0.9-1.2); PROTHROMBIN TIME 9.3 SEC (9.0-12.0); PTT,PARTIAL THROMBOPLSTIN TIME 25.6 SEC (22.0-34.0)
[2022-12-13 13:52] LABS: A/G RATIO 0.8; ALANINE AMINOTRANSFERASE,ALT 67 U/L (16-63); ALBUMIN 3.4 g/dL (3.4-5.0); ALKALINE PHOSPHATASE 72 U/L (46-116); ANION GAP 17.7 mEq/L (7-13); ASPARTATE AMNIOTRANSFERASE,AST 94 U/L (15-37); BILIRUBIN TOTAL 0.4 mg/dL (0.2-1.0); BLOOD UREA NITROGEN,BUN 27 mg/dL (7-18); BUN/CREATININE RATIO 25.2 (No establ ref range); CALCIUM 8.1 mg/dL (8.5-10.1); CARBON DIOXIDE,CO2 25 mmol/L (21-32); CHLORIDE,CL 111 mmol/L (98-107); CREATININE 1.07 mg/dL (0.70-1.30); EST CRCL DRUG DOSING (CG) 78.19 mL/min; ESTIMATED GFR 79 mL/min (>=60); ETHANOL BLOOD MEDICAL 163 mg/dL (0); GLUCOSE RANDOM 73 mg/dL (70-99); LIPASE 36 U/L (73-393); POTASSIUM,K 3.7 mmol/L (3.5-5.1); PROTEIN TOTAL,TP 7.7 g/dL (6.4-8.2); SODIUM,NA 150 mmol/L (136-145)
[2022-12-13] MEDS ORDERED: Naloxone 2 MG/2 ML Syringe IVPUSH ONE (13:56)
[2022-12-13] MEDS ORDERED: Dextrose 5%-0.45% NaCl 1,000 ML IV SCH (14:00)
[2022-12-13 14:01] LABS: LACTIC ACID 2.6 mmol/L (0.4-2.0)
[2022-12-13] MEDS ORDERED: Ondansetron 4 MG/2 ML SDV IV ONE (15:52)
[2022-12-13 16:03] LABS: AMPHETAMINES,URINE NEGATIVE (NEGATIVE); BARBITURATES,URINE NEGATIVE (NEGATIVE); BENZODIAZEPINE,URINE NEGATIVE (NEGATIVE); MDMA (ECSTASY), URINE NEGATIVE (NEGATIVE); METHADONE,URINE NEGATIVE (NEGATIVE); METHAMPHETAMINES,URINE POSITIVE (NEGATIVE); OPIATES,URINE NEGATIVE (NEGATIVE); OXYCODONE,URINE NEGATIVE (NEGATIVE); PHENCYCLIDINE,URINE NEGATIVE (NEGATIVE); TCA,URINE NEGATIVE (NEGATIVE)
[2022-12-13 16:07] LABS: APPEARANCE,URINE CLEAR (CLEAR); BILIRUBIN,URINE NEGATIVE (NEGATIVE); COLOR,URINE YELLOW (YELLOW); GLUCOSE,URINE NEGATIVE (NEGATIVE); KETONES,URINE TRACE (NEGATIVE); LEUKOCYTE ESTERASE,URINE NEGATIVE (NEGATIVE); NITRITE,URINE NEGATIVE (NEGATIVE); OCCULT BLOOD,URINE TRACE-INTACT (NEGATIVE); PH,URINE 5.5 (5.0-9.0); PROTEIN,URINE NEGATIVE (NEGATIVE); UROBILINOGEN,URINE 0.2 mg/dL (0.2-1.0)
[2022-12-13 16:18] LABS: EPITHELIAL CELLS,URINE NOT SEEN /HPF (NOT SEEN)
[2022-12-13 16:19] LABS: BACTERIA,URINE NOT SEEN /HPF (0-FEW/HPF)
[2022-12-13 16:20] LABS: RBC,URINE NOT SEEN /HPF (0-5); WBC,URINE NOT SEEN /HPF (0-5/HPF)
[2022-12-13] MEDS ORDERED: Take Home: Ondansetron 4 MG Tab.DIS, 5 Tab Pack PO ONE (17:45)
[2022-12-13] MEDS ORDERED: Famotidine 20 MG/2 ML SDV IVPUSH ONE (17:55)
[2022-12-13] MEDS ORDERED: Metoclopramide 10 MG/2 ML SDV IVPUSH ONE (17:55)
== END 2022-12-13 18:14 | disposition home or self-care (01) ==
LOC: DL.ED 13:12
DX: F10.120 Alcohol abuse with intoxication, uncomplicated (principal); K70.9 Alcoholic liver disease, unspecified; I10 Essential (primary) hypertension; F17.210 Nicotine dependence, cigarettes, uncomplicated; Z59.00 Homelessness unspecified
CPT/HCPCS: 36415; 80053; 80305; 80307; 81001; 83605; 83690; 84145; 85025; 85610; 85730; 96361; 96365; 96375; 99284; C9113; J2310; J2405; J2765; J3411; J3490; J7030; J7042; Q0162

== ENCOUNTER 2022-12-31 16:43 | Emergency (ER) | payer MEDICAID ==
[2022-12-31] MEDS ORDERED: Ondansetron 4 MG/2 ML SDV IVPUSH ONE (16:47)
[2022-12-31] MEDS ORDERED: MVI, Adult with Vitamin K 10 ML, Folic Acid 1 MG, Thiamine 100 MG in Lactated Ringers 1... IV ONE ×4 (16:47)
[2022-12-31] MEDS ORDERED: Sodium Chloride 0.9% 10 ML Syringe FLUSH PRN (16:47)
[2022-12-31] MEDS ORDERED: Famotidine 20 MG/2 ML SDV IVPUSH ONE (17:24)
[2022-12-31] MEDS ORDERED: LORazepam 2 MG/ML SDV IVPUSH ONE (17:26)
[2022-12-31 17:40] LABS: BASOPHILS PERCENT AUTO 0.5 % (0.0-1.0); EOSINOPHILS PERCENT AUTO 2.8 % (1.0-3.0); HEMATOCRIT 39.8 % (40.0-54.0); HEMOGLOBIN 13.4 g/dL (14.0-18.0); LYMPHOCYTES PERCENT AUTO 40.2 % (20.5-50.1); MEAN CORPUSCULAR HEMOGLOBIN 32.4 pg (27.0-34.0); MEAN CORPUSCULAR HGB CONC 33.7 g/dL (33.0-35.0); MEAN CORPUSCULAR VOLUME 96.1 fL (80-100); MONOCYTES PERCENT AUTO 11.4 % (2-8); NEUTROPHILS PERCENT AUTO 45.1 % (42.2-75.2); PLATELET COUNT,PLT 296 10^3/uL (150-450); RED BLOOD CELL COUNT 4.14 10^6/uL (4.6-6.2); WHITE BLOOD CELL COUNT,WBC 4.3 10^3/uL (5.0-10.0)
[2022-12-31 17:56] LABS: ANION GAP 14.1 mEq/L (7-13); BILIRUBIN TOTAL 0.3 mg/dL (0.2-1.0); BUN/CREATININE RATIO 25.7 (No establ ref range); CALCIUM 8.2 mg/dL (8.5-10.1); CREATININE 0.7 mg/dL (0.70-1.30); EST CRCL DRUG DOSING (CG) 115.87 mL/min; MAGNESIUM 1.6 mg/dL (1.8-2.4); PROTEIN TOTAL,TP 7.5 g/dL (6.4-8.2)
[2022-12-31 18:00] LABS: A/G RATIO 0.67
[2022-12-31 18:02] LABS: POTASSIUM,K 4.1 mmol/L (3.5-5.1)
[2022-12-31] MEDS ORDERED: Magnesium Oxide 400 MG Tab ONE (18:12)
[2023-01-01] MEDS ORDERED: Magnesium Oxide 400 MG Tab PO ONE (18:30)
== END 2022-12-31 19:15 | disposition home or self-care (01) ==
LOC: DL.ED 16:43
DX: K29.20 Alcoholic gastritis without bleeding (principal); F10.90 Alcohol use, unspecified, uncomplicated; I10 Essential (primary) hypertension; Z72.0 Tobacco use; Y90.8 Blood alcohol level of 240 mg/100 ml or more
CPT/HCPCS: 36415; 80053; 80307; 83690; 83735; 85025; 96365; 96375; 99283; 99284; A9270; J2060; J2405; J3411; J3490; J7120

== ENCOUNTER 2023-05-24 12:13 | Emergency (ER) | payer MEDICAID, OTHER ==
[2023-05-24] MEDS ORDERED: Acetaminophen 500 MG Tab PO ONE (17:35)
== END 2023-05-24 18:07 | disposition home or self-care (01) ==
LOC: DL.ED 12:13
DX: T69.9XXA Effect of reduced temperature, unspecified, initial encounter (principal); M79.661 Pain in right lower leg; M79.662 Pain in left lower leg; G89.29 Other chronic pain; M54.9 Dorsalgia, unspecified; I10 Essential (primary) hypertension; F17.210 Nicotine dependence, cigarettes, uncomplicated
CPT/HCPCS: 99283; A9270

== ENCOUNTER 2023-09-04 17:42 | Emergency (ER) | payer OTHER ==
[2023-09-04] MEDS: Dexamethasone 4 MG/ML SDV IM ONE (18:16)
== END 2023-09-04 18:15 | disposition home or self-care (01) ==
LOC: DL.ED 17:42
DX: M79.604 Pain in right leg (principal); M79.605 Pain in left leg; I10 Essential (primary) hypertension; Z90.49 Acquired absence of other specified parts of digestive tract
CPT/HCPCS: 96372; 99283; 99284; J1100

== ENCOUNTER 2024-01-23 11:39 | Emergency (ER) | payer SELFPAY ==
[~2024-01-23 11:39] MED LIST: Haloperidol Lactate 5 MG/ML SDV ONE; Sodium Chloride 0.9% 10 ML Syringe FLUSH PRN; fentaNYL 100 MCG/2 ML SDV ONE
[2024-01-23] MEDS ORDERED: Haloperidol Lactate 5 MG/ML SDV IM ONE (11:41)
[2024-01-23] MEDS: LORazepam 2 MG/ML SDV ONE (11:58)
[2024-01-23] MEDS: Haloperidol Lactate 5 MG/ML SDV IM ONE (11:59)
[2024-01-23 12:06] LABS: BASOPHILS PERCENT AUTO 0.4 % (0.0-1.0); EOSINOPHILS PERCENT AUTO 1.6 % (1.0-3.0); HEMATOCRIT 43.6 % (40.0-54.0); HEMOGLOBIN 14.8 g/dL (14.0-18.0); LYMPHOCYTES PERCENT AUTO 33.2 % (20.5-50.1); MEAN CORPUSCULAR HEMOGLOBIN 31.9 pg (27.0-34.0); MEAN CORPUSCULAR HGB CONC 33.9 g/dL (33.0-35.0); MONOCYTES PERCENT AUTO 6.7 % (2-8); NEUTROPHILS PERCENT AUTO 58.1 % (42.2-75.2); PLATELET COUNT,PLT 233 10^3/uL (150-450); RED BLOOD CELL COUNT 4.64 10^6/uL (4.6-6.2); WHITE BLOOD CELL COUNT,WBC 6.8 10^3/uL (5.0-10.0)
[2024-01-23 12:24] LABS: INR 0.9 (0.9-1.2); PROTHROMBIN TIME 9.7 SEC (9.0-12.0); PTT,PARTIAL THROMBOPLSTIN TIME 26.4 SEC (22.0-34.0)
[2024-01-23 12:29] LABS: A/G RATIO 0.8; ALANINE AMINOTRANSFERASE,ALT 43 U/L (16-63); ALBUMIN 3.5 g/dL (3.4-5.0); ALKALINE PHOSPHATASE 71 U/L (46-116); ANION GAP 17.5 mEq/L (7-13); ASPARTATE AMNIOTRANSFERASE,AST 66 U/L (15-37); BILIRUBIN TOTAL 0.2 mg/dL (0.2-1.0); BLOOD UREA NITROGEN,BUN 13 mg/dL (7-18); BUN/CREATININE RATIO 15.7 (No establ ref range); CALCIUM 8.7 mg/dL (8.5-10.1); CARBON DIOXIDE,CO2 25 mmol/L (21-32); CHLORIDE,CL 108 mmol/L (98-107); CREATINE KINASE,CK 230 U/L (39-308); CREATININE 0.83 mg/dL (0.70-1.30); GLUCOSE RANDOM 97 mg/dL (70-99); MAGNESIUM 1.8 mg/dL (1.8-2.4); POTASSIUM,K 3.5 mmol/L (3.5-5.1); PROTEIN TOTAL,TP 7.7 g/dL (6.4-8.2); SODIUM,NA 147 mmol/L (136-145)
[2024-01-23 12:30] LABS: ESTIMATED GFR 100 mL/min (>=60)
[2024-01-23] MEDS: Sodium Chloride 0.9% 1,000 ML IV ONE ×2 (12:45→16:09)
[2024-01-23] MEDS: MVI, Adult with Vitamin K 10 ML, Folic Acid 1 MG, Thiamine 100 MG in Lactated Ringers 1... IV ONE (14:03)
[2024-01-23] MEDS: Iopamidol 612 MG/ML 100 ML Bottle IVPUSH ONE (15:52)
[2024-01-23] MEDS ORDERED: Lactated Ringers 1,000 ML IV SCH (17:30)
[2024-01-23 20:12] LABS: APPEARANCE,URINE CLEAR (CLEAR); BILIRUBIN,URINE NEGATIVE (NEGATIVE); COLOR,URINE YELLOW (YELLOW); GLUCOSE,URINE NEGATIVE (NEGATIVE); KETONES,URINE NEGATIVE (NEGATIVE); LEUKOCYTE ESTERASE,URINE NEGATIVE (NEGATIVE); NITRITE,URINE NEGATIVE (NEGATIVE); OCCULT BLOOD,URINE TRACE-INTACT (NEGATIVE); PH,URINE 5.5 (5.0-9.0); PROTEIN,URINE NEGATIVE (NEGATIVE); UROBILINOGEN,URINE 0.2 mg/dL (0.2-1.0)
[2024-01-23 20:14] LABS: AMPHETAMINES,URINE NEGATIVE (NEGATIVE); BARBITURATES,URINE NEGATIVE (NEGATIVE); BENZODIAZEPINE,URINE NEGATIVE (NEGATIVE); MDMA (ECSTASY), URINE NEGATIVE (NEGATIVE); METHADONE,URINE NEGATIVE (NEGATIVE); METHAMPHETAMINES,URINE NEGATIVE (NEGATIVE); OPIATES,URINE NEGATIVE (NEGATIVE); OXYCODONE,URINE NEGATIVE (NEGATIVE); PHENCYCLIDINE,URINE NEGATIVE (NEGATIVE); TCA,URINE NEGATIVE (NEGATIVE)
[2024-01-23 20:37] LABS: BACTERIA,URINE FEW /HPF (0-FEW/HPF); EPITHELIAL CELLS,URINE RARE /HPF (NOT SEEN); MUCUS,URINE FEW /LPF (NOT SEEN); WBC,URINE 0-5 /HPF (0-5/HPF)
== END 2024-01-24 10:35 | disposition home or self-care (01) ==
LOC: DL.ED 11:39
DX: F10.239 Alcohol dependence with withdrawal, unspecified (principal); I10 Essential (primary) hypertension; Z86.16 Personal history of COVID-19; Z90.49 Acquired absence of other specified parts of digestive tract
CPT/HCPCS: 36415; 70450; 71045; 71260; 72125; 72128; 72131; 74177; 80053; 80305-QW; 80307; 81001; 82550; 83605; 83735; 84484; 85025; 85610; 85730; 93005; 93010; 96361; 96365; 96372; 99284; 99285-25; J1630; J2060; J3411; J3490; J7030; J7120; Q9967

== ENCOUNTER 2024-02-10 08:55 | Emergency (ER) | payer OTHER ==
[2024-02-10] MEDS: Acetaminophen 325 MG Tab PO ONE (09:34)
[2024-02-10] MEDS: Ketorolac 30 MG/ML SDV IM ONE (09:35)
== END 2024-02-10 09:50 | disposition home or self-care (01) ==
LOC: DL.ED 08:55
DX: M16.0 Bilateral primary osteoarthritis of hip (principal); I10 Essential (primary) hypertension; Z86.16 Personal history of COVID-19; Z90.49 Acquired absence of other specified parts of digestive tract; F17.200 Nicotine dependence, unspecified, uncomplicated
CPT/HCPCS: 96372; 99283; A9270; J1885

== ENCOUNTER 2024-02-18 14:35 | Emergency (ER) | payer OTHER ==
[2024-02-18] MEDS: Ibuprofen 400 MG Tab PO ONE (14:43)
== END 2024-02-18 15:33 | disposition home or self-care (01) ==
LOC: DL.ED 14:35
DX: M16.0 Bilateral primary osteoarthritis of hip (principal); F10.10 Alcohol abuse, uncomplicated; I10 Essential (primary) hypertension; Z86.16 Personal history of COVID-19; Z90.49 Acquired absence of other specified parts of digestive tract
CPT/HCPCS: 99283; A9270-GY

== ENCOUNTER 2024-03-11 13:44 | Emergency (ER) | payer SELFPAY ==
[2024-03-11] MEDS: Ketorolac 30 MG/ML SDV IM ONE (14:31)
== END 2024-03-11 14:40 | disposition home or self-care (01) ==
LOC: DL.ED 13:44
DX: M25.561 Pain in right knee (principal); M25.562 Pain in left knee; G89.29 Other chronic pain; I10 Essential (primary) hypertension; Z86.16 Personal history of COVID-19; Z90.49 Acquired absence of other specified parts of digestive tract
CPT/HCPCS: 96372; 99284; J1885

== ENCOUNTER 2024-03-17 16:47 | Emergency (ER) | payer SELFPAY ==
[2024-03-17 17:04] LABS: BASOPHILS PERCENT AUTO 0.3 % (0.0-1.0); EOSINOPHILS PERCENT AUTO 0.8 % (1.0-3.0); HEMATOCRIT 46.6 % (40.0-54.0); HEMOGLOBIN 15.8 g/dL (14.0-18.0); LYMPHOCYTES PERCENT AUTO 38.6 % (20.5-50.1); MEAN CORPUSCULAR HEMOGLOBIN 32.8 pg (27.0-34.0); MEAN CORPUSCULAR HGB CONC 33.9 g/dL (33.0-35.0); MEAN CORPUSCULAR VOLUME 96.9 fL (80-100); NEUTROPHILS PERCENT AUTO 53.3 % (42.2-75.2); PLATELET COUNT,PLT 253 10^3/uL (150-450); RED BLOOD CELL COUNT 4.81 10^6/uL (4.6-6.2); WHITE BLOOD CELL COUNT,WBC 10.1 10^3/uL (5.0-10.0)
[2024-03-17 17:23] LABS: A/G RATIO 0.8; ALANINE AMINOTRANSFERASE,ALT 63 U/L (16-63); ALBUMIN 3.8 g/dL (3.4-5.0); ALKALINE PHOSPHATASE 98 U/L (46-116); ANION GAP 10.4 mEq/L (7-13); ASPARTATE AMNIOTRANSFERASE,AST 118 U/L (15-37); BILIRUBIN TOTAL 0.3 mg/dL (0.2-1.0); BLOOD UREA NITROGEN,BUN 19 mg/dL (7-18); BUN/CREATININE RATIO 21.8 (No establ ref range); CALCIUM 9.3 mg/dL (8.5-10.1); CARBON DIOXIDE,CO2 35 mmol/L (21-32); CHLORIDE,CL 109 mmol/L (98-107); CREATININE 0.87 mg/dL (0.70-1.30); ESTIMATED GFR 98 mL/min (>=60); GLUCOSE RANDOM 128 mg/dL (70-99); POTASSIUM,K 4.4 mmol/L (3.5-5.1); PROTEIN TOTAL,TP 8.3 g/dL (6.4-8.2); SODIUM,NA 150 mmol/L (136-145)
[2024-03-17 17:24] LABS: ETHANOL BLOOD MEDICAL 432 mg/dL (0)
[2024-03-17] MEDS: Midazolam 1 MG/ML 2 ML SDV ONE (17:38)
[2024-03-17] MEDS: Midazolam 1 MG/ML 2 ML SDV IVPUSH ONE (18:52)
== END 2024-03-17 21:56 | disposition home or self-care (01) ==
LOC: DL.ED 16:47
DX: F10.120 Alcohol abuse with intoxication, uncomplicated (principal); I10 Essential (primary) hypertension; Z86.16 Personal history of COVID-19; Z90.49 Acquired absence of other specified parts of digestive tract
CPT/HCPCS: 36415; 70450; 72125; 80053; 80307; 85025; 96374; 99285; J2250

== ENCOUNTER 2024-03-20 09:14 | Emergency (ER) | payer SELFPAY ==
[2024-03-20] MEDS: Ketorolac 30 MG/ML SDV IM ONE (10:44)
== END 2024-03-20 10:58 | disposition home or self-care (01) ==
LOC: DL.ED 09:14
DX: M19.072 Primary osteoarthritis, left ankle and foot (principal); I10 Essential (primary) hypertension; Z86.16 Personal history of COVID-19; Z90.49 Acquired absence of other specified parts of digestive tract
CPT/HCPCS: 73630-LT; 96372; 99283; J1885

== ENCOUNTER 2024-03-28 15:07 | Emergency (ER) | payer SELFPAY ==
[2024-03-28] MEDS ORDERED: Sodium Chloride 0.9% 10 ML Syringe FLUSH PRN (15:19)
[2024-03-28 15:35] LABS: BASOPHILS PERCENT AUTO 0.4 % (0.0-1.0); HEMATOCRIT 43.1 % (40.0-54.0); HEMOGLOBIN 14.3 g/dL (14.0-18.0); LYMPHOCYTES PERCENT AUTO 47.1 % (20.5-50.1); MEAN CORPUSCULAR HEMOGLOBIN 33.1 pg (27.0-34.0); MEAN CORPUSCULAR HGB CONC 33.2 g/dL (33.0-35.0); MEAN CORPUSCULAR VOLUME 99.8 fL (80-100); MONOCYTES PERCENT AUTO 6.2 % (2-8); NEUTROPHILS PERCENT AUTO 43.3 % (42.2-75.2); PLATELET COUNT,PLT 306 10^3/uL (150-450); RED BLOOD CELL COUNT 4.32 10^6/uL (4.6-6.2); WHITE BLOOD CELL COUNT,WBC 7.4 10^3/uL (5.0-10.0)
[2024-03-28] MEDS: MVI, Adult with Vitamin K 10 ML, Folic Acid 1 MG, Thiamine 100 MG in Lactated Ringers 1... IV ONE (15:36)
[2024-03-28 15:58] LABS: ALBUMIN 3.2 g/dL (3.4-5.0); ANION GAP 11.8 mEq/L (7-13); BILIRUBIN TOTAL 0.2 mg/dL (0.2-1.0); BUN/CREATININE RATIO 12.6 (No establ ref range); CALCIUM 8.9 mg/dL (8.5-10.1); CREATININE 0.87 mg/dL (0.70-1.30); EST CRCL DRUG DOSING (CG) 83.36 mL/min; POTASSIUM,K 4.8 mmol/L (3.5-5.1); PROTEIN TOTAL,TP 7.3 g/dL (6.4-8.2)
[2024-03-28 15:59] LABS: A/G RATIO 0.78
== END 2024-03-28 16:29 | disposition left against medical advice (07) ==
LOC: DL.ED 15:07
DX: F10.120 Alcohol abuse with intoxication, uncomplicated (principal); I10 Essential (primary) hypertension; Z86.16 Personal history of COVID-19; Z90.49 Acquired absence of other specified parts of digestive tract; Y90.8 Blood alcohol level of 240 mg/100 ml or more
CPT/HCPCS: 36415; 80053; 80307; 83735; 85025; 96365; 99283; 99284; J3411; J7120; J3490

== ENCOUNTER 2024-04-20 18:13 | Emergency (ER) | payer MEDICAID ==
[2024-04-20] MEDS: Famotidine 20 MG Tab PO ONE (18:45)
[2024-04-20] MEDS: Acetaminophen 325 MG Tab PO ONE (18:45)
[2024-04-20] MEDS: Ibuprofen 400 MG Tab PO ONE (18:46)
== END 2024-04-20 18:45 | disposition home or self-care (01) ==
LOC: DL.ED 18:13
DX: M19.90 Unspecified osteoarthritis, unspecified site (principal); I10 Essential (primary) hypertension; Z86.16 Personal history of COVID-19; Z90.49 Acquired absence of other specified parts of digestive tract
CPT/HCPCS: 99283; A9270

== ENCOUNTER 2024-05-11 15:28 | Emergency (ER) | payer MEDICAID, OTHER | END 2024-05-11 15:50 | LOC: DL.ED 15:28 | DX: F10.129 Alcohol abuse with intoxication, unspecified (principal); Z53.20 Procedure and treatment not carried out because of patient's decision for unspecified reasons; I10 Essential (primary) hypertension; Z86.16 Personal history of COVID-19; Z90.49 Acquired absence of other specified parts of digestive tract; Y90.9 Presence of alcohol in blood, level not specified | CPT/HCPCS: 99284 ==

== ENCOUNTER 2024-05-11 16:39 | Emergency (ER) | payer MEDICAID, OTHER | END 2024-05-11 17:11 | disposition home or self-care (01) | LOC: DL.ED 16:39 | DX: Z02.89 Encounter for other administrative examinations (principal); I10 Essential (primary) hypertension; Z86.16 Personal history of COVID-19; Z90.49 Acquired absence of other specified parts of digestive tract | CPT/HCPCS: 99283 ==

== ENCOUNTER 2024-05-19 21:18 | Emergency (ER) | payer MEDICAID ==
[~2024-05-19 21:18] MED LIST changes: -Haloperidol Lactate 5 MG/ML SDV ONE; -fentaNYL 100 MCG/2 ML SDV ONE
== END 2024-05-19 22:00 | disposition left against medical advice (07) ==
LOC: DL.ED 21:18
DX: Z53.21 Procedure and treatment not carried out due to patient leaving prior to being seen by health care provider (principal)
CPT/HCPCS: 99283

== ENCOUNTER 2024-08-12 05:25 | Emergency (ER) | payer MEDICAID ==
[2024-08-12] MEDS: Ibuprofen 600 MG Tab PO ONE (05:54)
== END 2024-08-12 06:33 | disposition home or self-care (01) ==
LOC: DL.ED 05:25
DX: M25.551 Pain in right hip (principal); M25.552 Pain in left hip; G89.29 Other chronic pain; I10 Essential (primary) hypertension; Z86.16 Personal history of COVID-19; X31.XXXA Exposure to excessive natural cold, initial encounter; Y93.89 Activity, other specified
CPT/HCPCS: 99283; 99284; A9270

== ENCOUNTER 2024-08-12 07:47 | Emergency (ER) | payer MEDICAID | END 2024-08-12 08:01 | disposition left against medical advice (07) | LOC: DL.ED 07:47 | DX: Z53.21 Procedure and treatment not carried out due to patient leaving prior to being seen by health care provider (principal) ==

== ENCOUNTER 2024-08-13 18:53 | Emergency (ER) | payer MEDICAID ==
[2024-08-13] MEDS: Ibuprofen 600 MG Tab PO ONE (19:22)
== END 2024-08-13 19:31 | disposition home or self-care (01) ==
LOC: DL.ED 18:53
DX: M79.671 Pain in right foot (principal); M79.605 Pain in left leg; G89.29 Other chronic pain; I10 Essential (primary) hypertension; Z86.16 Personal history of COVID-19
CPT/HCPCS: 99283; 99284; A9270

== ENCOUNTER 2024-08-15 11:19 | Emergency (ER) | payer MEDICAID | END 2024-08-15 12:54 | disposition left against medical advice (07) | LOC: DL.ED 11:19 | DX: Z53.21 Procedure and treatment not carried out due to patient leaving prior to being seen by health care provider (principal) ==

== ENCOUNTER 2024-08-20 12:24 | Emergency (ER) | payer MEDICAID ==
[2024-08-20] MEDS: Ketorolac 30 MG/ML SDV IM ONE (12:44)
== END 2024-08-20 13:21 | disposition home or self-care (01) ==
LOC: DL.ED 12:24
DX: M25.551 Pain in right hip (principal); M25.552 Pain in left hip; G89.29 Other chronic pain; I10 Essential (primary) hypertension; Z86.16 Personal history of COVID-19
CPT/HCPCS: 73521; 96372; 99283; J1885

== ENCOUNTER 2024-09-06 21:20 | Emergency (ER) | payer MEDICAID ==
[2024-09-06 22:05] LABS: BASOPHILS PERCENT AUTO 0.4 % (0.0-1.0); EOSINOPHILS PERCENT AUTO 3.1 % (1.0-3.0); HEMATOCRIT 43.7 % (40.0-54.0); HEMOGLOBIN 14.6 g/dL (14.0-18.0); LYMPHOCYTES PERCENT AUTO 34.8 % (20.5-50.1); MEAN CORPUSCULAR HEMOGLOBIN 31.6 pg (27.0-34.0); MEAN CORPUSCULAR HGB CONC 33.4 g/dL (33.0-35.0); MEAN CORPUSCULAR VOLUME 94.6 fL (80-100); MONOCYTES PERCENT AUTO 9.7 % (2-8); PLATELET COUNT,PLT 244 10^3/uL (150-450); RED BLOOD CELL COUNT 4.62 10^6/uL (4.6-6.2); WHITE BLOOD CELL COUNT,WBC 9.3 10^3/uL (5.0-10.0)
[2024-09-06 22:22] LABS: A/G RATIO 0.8; ALBUMIN 3.4 g/dL (3.4-5.0); ANION GAP 17.8 mEq/L (7-13); BILIRUBIN TOTAL 0.1 mg/dL (0.2-1.0); BUN/CREATININE RATIO 21.8 (No establ ref range); CALCIUM 9.7 mg/dL (8.5-10.1); CREATININE 1.33 mg/dL (0.70-1.30); EST CRCL DRUG DOSING (CG) 52.63 mL/min; POTASSIUM,K 4.8 mmol/L (3.5-5.1); PROTEIN TOTAL,TP 7.8 g/dL (6.4-8.2)
[2024-09-07 02:45] LABS: ANION GAP 16.8 mEq/L (7-13); CALCIUM 8.9 mg/dL (8.5-10.1); CREATININE 1.08 mg/dL (0.70-1.30); EST CRCL DRUG DOSING (CG) 64.82 mL/min; POTASSIUM,K 3.8 mmol/L (3.5-5.1)
[2024-09-07 05:13] LABS: APPEARANCE,URINE CLEAR (CLEAR); BILIRUBIN,URINE NEGATIVE (NEGATIVE); COLOR,URINE YELLOW (YELLOW); GLUCOSE,URINE NEGATIVE (NEGATIVE); KETONES,URINE NEGATIVE (NEGATIVE); LEUKOCYTE ESTERASE,URINE NEGATIVE (NEGATIVE); NITRITE,URINE NEGATIVE (NEGATIVE); OCCULT BLOOD,URINE NEGATIVE (NEGATIVE); PH,URINE 5.5 (5.0-9.0); PROTEIN,URINE NEGATIVE (NEGATIVE); UROBILINOGEN,URINE 0.2 mg/dL (0.2-1.0)
[2024-09-07 05:15] LABS: AMPHETAMINES,URINE NEGATIVE (NEGATIVE); BARBITURATES,URINE NEGATIVE (NEGATIVE); BENZODIAZEPINE,URINE NEGATIVE (NEGATIVE); MDMA (ECSTASY), URINE NEGATIVE (NEGATIVE); METHADONE,URINE NEGATIVE (NEGATIVE); METHAMPHETAMINES,URINE NEGATIVE (NEGATIVE); OPIATES,URINE NEGATIVE (NEGATIVE); OXYCODONE,URINE NEGATIVE (NEGATIVE); PHENCYCLIDINE,URINE NEGATIVE (NEGATIVE); TCA,URINE NEGATIVE (NEGATIVE)
[2024-09-07 06:15] LABS: ANION GAP 16.8 mEq/L (7-13); CALCIUM 8.9 mg/dL (8.5-10.1); CREATININE 1.03 mg/dL (0.70-1.30); EST CRCL DRUG DOSING (CG) 67.96 mL/min; POTASSIUM,K 3.8 mmol/L (3.5-5.1)
[2024-09-07] MEDS: Ondansetron 4 MG Tab.DIS PO ONE (06:18)
[2024-09-07] MEDS: Ondansetron 4 MG/2 ML SDV IVPUSH ONE (07:40)
[2024-09-07] MEDS ORDERED: Acetaminophen 500 MG Tab PO ONE (12:13)
[2024-09-07] MEDS ORDERED: Ketorolac 30 MG/ML SDV IVPUSH ONE (12:13)
[2024-09-07 16:12] LABS: ANION GAP 12.3 mEq/L (7-13); CREATININE 0.96 mg/dL (0.70-1.30); EST CRCL DRUG DOSING (CG) 72.92 mL/min; POTASSIUM,K 4.3 mmol/L (3.5-5.1)
== END 2024-09-07 16:43 | disposition home or self-care (01) ==
LOC: DL.ED 21:20
DX: F10.920 Alcohol use, unspecified with intoxication, uncomplicated (principal); I10 Essential (primary) hypertension; F17.210 Nicotine dependence, cigarettes, uncomplicated; Z86.16 Personal history of COVID-19; Z90.49 Acquired absence of other specified parts of digestive tract
CPT/HCPCS: 36415; 80048; 80053; 80143; 80179; 80305-QW; 80307; 81003; 83735; 85025; 93005; 93010; 99284; A9270-GY

== ENCOUNTER 2024-09-13 22:36 | Emergency (ER) | payer MEDICAID ==
[2024-09-13 23:59] LABS: APPEARANCE,URINE CLEAR (CLEAR); BILIRUBIN,URINE SMALL (NEGATIVE); COLOR,URINE YELLOW (YELLOW); GLUCOSE,URINE NEGATIVE (NEGATIVE); KETONES,URINE 15 (NEGATIVE); LEUKOCYTE ESTERASE,URINE NEGATIVE (NEGATIVE); NITRITE,URINE NEGATIVE (NEGATIVE); OCCULT BLOOD,URINE NEGATIVE (NEGATIVE); PH,URINE 5.5 (5.0-9.0); PROTEIN,URINE 30 (NEGATIVE)
[2024-09-14 00:15] LABS: RBC,URINE 0-5 /HPF (0-5)
[2024-09-14 00:16] LABS: BACTERIA,URINE MODERATE /HPF (0-FEW/HPF); EPITHELIAL CELLS,URINE RARE /HPF (NOT SEEN); WBC,URINE 0-5 /HPF (0-5/HPF)
[2024-09-14 00:18] LABS: FINE GRANULAR CASTS,URINE FEW /LPF (NOT SEEN); MUCUS,URINE FEW /LPF (NOT SEEN)
[2024-09-15 10:47] LABS: C.TRACHOMATIS BY TMA Negative (Negative); N.GONORRHOEAE BY TMA Negative (Negative); SOURCE URINE
== END 2024-09-14 00:25 | disposition home or self-care (01) ==
LOC: DL.ED 22:36
DX: M70.61 Trochanteric bursitis, right hip (principal); I10 Essential (primary) hypertension; Z86.16 Personal history of COVID-19; Z90.49 Acquired absence of other specified parts of digestive tract
CPT/HCPCS: 81001; 87491; 87591; 99283

== ENCOUNTER 2024-11-16 14:38 | Emergency (ER) | payer MEDICAID ==
[2024-11-16 15:10] LABS: BASOPHILS PERCENT AUTO 0.6 % (0.0-1.0); EOSINOPHILS PERCENT AUTO 4.7 % (1.0-3.0); LYMPHOCYTES PERCENT AUTO 24.5 % (20.5-50.1); MONOCYTES PERCENT AUTO 8.9 % (2-8); NEUTROPHILS PERCENT AUTO 61.3 % (42.2-75.2); PLATELET COUNT,PLT 281 10^3/uL (150-450); RED BLOOD CELL COUNT 4.91 10^6/uL (4.6-6.2); WHITE BLOOD CELL COUNT,WBC 5.1 10^3/uL (5.0-10.0)
[2024-11-16 15:33] LABS: A/G RATIO 0.66; ALANINE AMINOTRANSFERASE,ALT 79.0 U/L (16-63); ASPARTATE AMNIOTRANSFERASE,AST 120.0 U/L (15-37); BILIRUBIN TOTAL 0.4 mg/dL (0.2-1.0); BLOOD UREA NITROGEN,BUN 11.0 mg/dL (7-18); CARBON DIOXIDE,CO2 28.0 mmol/L (21-32); CHLORIDE,CL 106.0 mmol/L (98-107); CREATININE 1.15 mg/dL (0.70-1.30); EST CRCL DRUG DOSING (CG) 71.84 mL/min; ESTIMATED GFR 72.0 mL/min (>=60); ETHANOL BLOOD MEDICAL 61.0 mg/dL (0); GLUCOSE RANDOM 138.0 mg/dL (70-99); POTASSIUM,K 3.7 mmol/L (3.5-5.1); PROTEIN TOTAL,TP 7.8 g/dL (6.4-8.2); SODIUM,NA 144.0 mmol/L (136-145)
[2024-11-16] MEDS: Magnesium Sulfate 2 GM/50 mL 2 GM in Premix Bag 1 BAG IV ONE (15:42)
[2024-11-16] MEDS: MVI, Adult with Vitamin K 10 ML, Folic Acid 1 MG, Thiamine 100 MG in Lactated Ringers 1... IV ONE (15:43)
== END 2024-11-16 16:22 | disposition home or self-care (01) ==
LOC: DL.ED 14:38
DX: E86.0 Dehydration (principal); E83.42 Hypomagnesemia; I10 Essential (primary) hypertension; Z86.16 Personal history of COVID-19
CPT/HCPCS: 36415; 80053; 80307; 83735; 85025; 96365; 96368; 99284; J3411; J3475; J7120; J3490

== ENCOUNTER 2024-12-01 21:46 | Emergency (ER) | payer MEDICAID ==
[2024-12-01] MEDS ORDERED: Propofol 200 MG/20 ML SDV IVPUSH ONE (22:00)
[2024-12-01] MEDS ORDERED: propofoL 1,000 MG/100 ML 100 ML IV SCH (22:00)
[2024-12-01] MEDS ORDERED: Rocuronium 100 MG/10 ML MDV IVPUSH ONE (22:00)
[2024-12-01] MEDS ORDERED: Etomidate 2 MG/ML 20 ML SDV IV ONE (22:00)
[2024-12-01] MEDS ORDERED: Succinylcholine 200 MG/10 ML MDV IV ONE ×2 (22:00)
[2024-12-01] MEDS: Iopamidol 612 MG/ML 100 ML Bottle IVPUSH ONE (22:36)
[2024-12-01] MEDS ORDERED: hydrALAZINE 20 MG/ML SDV ONE (22:46)
[2024-12-01 22:47] LABS: BASOPHILS PERCENT AUTO 0.4 % (0.0-1.0); EOSINOPHILS PERCENT AUTO 2.8 % (1.0-3.0); LYMPHOCYTES PERCENT AUTO 27.0 % (20.5-50.1); MONOCYTES PERCENT AUTO 6.9 % (2-8); NEUTROPHILS PERCENT AUTO 62.9 % (42.2-75.2); PLATELET COUNT,PLT 245 10^3/uL (150-450); RED BLOOD CELL COUNT 4.82 10^6/uL (4.6-6.2); WHITE BLOOD CELL COUNT,WBC 6.9 10^3/uL (5.0-10.0)
[2024-12-01] MEDS ORDERED: fentaNYL 100 MCG/2 ML SDV ONE (22:47)
[2024-12-01 22:54] LABS: INR 0.9 (0.9-1.2); PTT,PARTIAL THROMBOPLSTIN TIME 24.7 SEC (22.0-34.0)
[2024-12-01 23:00] LABS: A/G RATIO 0.7; ALANINE AMINOTRANSFERASE,ALT 175 U/L (16-63); ASPARTATE AMNIOTRANSFERASE,AST 140 U/L (15-37); BILIRUBIN TOTAL 0.4 mg/dL (0.2-1.0); BLOOD UREA NITROGEN,BUN 18 mg/dL (7-18); CARBON DIOXIDE,CO2 23 mmol/L (21-32); CHLORIDE,CL 108 mmol/L (98-107); CREATINE KINASE,CK 94 U/L (39-308); CREATININE 0.90 mg/dL (0.70-1.30); ETHANOL BLOOD MEDICAL 156 mg/dL (0); GLUCOSE RANDOM 105 mg/dL (70-99); POTASSIUM,K 4.1 mmol/L (3.5-5.1); PROTEIN TOTAL,TP 8.0 g/dL (6.4-8.2); SODIUM,NA 143 mmol/L (136-145)
[2024-12-01 23:01] LABS: ESTIMATED GFR 97 mL/min (>=60)
[2024-12-01 23:02] LABS: LACTIC ACID 2.3 mmol/L (0.4-2.0)
[2024-12-01] MEDS ORDERED: Midazolam 5 MG/ML 10 ML MDV ONE (23:03)
[2024-12-01 23:10] LABS: APPEARANCE,URINE CLEAR (CLEAR); GLUCOSE,URINE NEGATIVE (NEGATIVE); OCCULT BLOOD,URINE TRACE-INTACT (NEGATIVE)
[2024-12-01 23:15] LABS: MDMA (ECSTASY), URINE NEGATIVE (NEGATIVE); METHAMPHETAMINES,URINE POSITIVE (NEGATIVE); OPIATES,URINE NEGATIVE (NEGATIVE)
[2024-12-01 23:16] LABS: AMPHETAMINES,URINE NEGATIVE (NEGATIVE); BARBITURATES,URINE NEGATIVE (NEGATIVE); OXYCODONE,URINE NEGATIVE (NEGATIVE); PHENCYCLIDINE,URINE NEGATIVE (NEGATIVE); TCA,URINE NEGATIVE (NEGATIVE)
[2024-12-01 23:45] LABS: O2 DELIVERY DEVICE T-PIECE; O2 FLOW RATE 100
[2024-12-01 23:46] LABS: BASE EXCESS ARTERIAL -6 mmol/L ((-2)-(+3)); BICARBONATE,ARTERIAL 19.2 mmol/L (22-26); O2 SATURATION ARTERIAL 100 % (95-100); PCO2 ARTERIAL 40 mmHg (35-45); PH,ARTERIAL 7.30 (7.35-7.45); PO2 ARTERIAL 226 mmHg (70-100)
[2024-12-01] MEDS ORDERED: fentaNYL 100 MCG/2 ML SDV IVPUSH ONE (23:51)
[2024-12-02 01:45] LABS: SQUAMOUS EPITHELIAL CELLS,UR RARE /HPF (NOT SEEN)
== END 2024-12-02 01:15 ==
LOC: DL.ED 22:36
DX: S00.03XA Contusion of scalp, initial encounter (principal); S00.83XA Contusion of other part of head, initial encounter; F10.121 Alcohol abuse with intoxication delirium; G93.40 Encephalopathy, unspecified; H49.03 Third [oculomotor] nerve palsy, bilateral; I10 Essential (primary) hypertension; Z86.16 Personal history of COVID-19; Z90.49 Acquired absence of other specified parts of digestive tract; Y04.0XXA Assault by unarmed brawl or fight, initial encounter
CPT/HCPCS: 31500; 36415; 36600; 70450; 71045; 71260; 72125; 74177; 80053; 80305; 80307; 81001; 82140; 82550; 82803; 83605; 83690; 83735; 84484; 85025; 85610; 85730; 96365; 96366; 96375; 99291; G0390; J0330; Q9967